=== PATIENT | female | born 1960 | race Caucasian/White ===

== ENCOUNTER 2016-12-11 20:19 | Emergency (ER) | payer MEDICARE ==
[2016-12-11] MEDS ORDERED: Sodium Chloride 0.9% 1000 ML 1,000 ML IV SCH (20:30)
--- NOTE | 2016-12-11 20:35 | ERPHSYRPT ---
- History of Present Illness Time Seen by Provider: 12/11/16 20:23 Source: patient Exam Limitations: no limitations Physician History: FOR THE PAST 5 DAYS PT HAS HAD YELLOW WATERY DIARRHEA; FOR THE PAST 50 MINUTES SHORTNESS OF AIR. PT DENIES VOMITING, FEVER, CHEST PAIN. PT REPORTEDLY HAD IVF THIS AM AND A LOW POTASSIUM. Allergies/Adverse Reactions: iodine Allergy (Verified 12/11/16 20:34) walnut Allergy (Verified 12/11/16 20:34) acetaminophen [From Percocet] Adverse Reaction (Mild, Verified 12/11/16 20:34) UPSET STOMACH oxycodone HCl [From Percocet] Adverse Reaction (Mild, Verified 12/11/16 20:34) UPSET STOMACH Home Medications: Metoprolol Tartrate 25 mg [Lopressor 25MG Tab] 50 mg PO BID 01/04/16 [ History] Ropinirole HCl [Requip] 0.5 mg PO TID PRN 01/04/16 [History] Carbamazepine 200 mg [Tegretol 200 MG] 200 mg PO BID 03/29/16 [History] Levothyroxine Sodium 25 Mcg [Synthroid 25 Mcg] 25 mcg PO DAILY 03/29/16 [ History] Trazodone HCl 300 mg PO DAILY 03/29/16 [History] Benztropine Mesylate 1 tab PO BID 06/15/16 [History] Gabapentin 1 cap PO BID 06/15/16 [History] Morphine Sulfate/Naltrexone [Embeda 60-2.4 mg Capsule] 1 cap PO DAILY 06/15/16 [ History] Simvastatin 1 oz PO DAILY 06/15/16 [History] Suvorexant [Belsomra] 1 tab PO HS 06/15/16 [History] Suvorexant [Belsomra] 20 mg PO HS 07/06/16 [History] Hx Tetanus, Diphtheria Vaccination/Date Given: Yes (2014) Hx Influenza Vaccination/Date Given: No Hx Pneumococcal Vaccination/Date Given: Yes - Review of Systems Constitutional: No Fever Respiratory: Dyspnea Cardiac: No Chest Pain Abdominal/Gastrointestinal: Diarrhea, No Vomiting Skin: No Rash Endocrine: No Excessive Sweating All Other Systems: Reviewed and Negative - Past Medical History Pertinent Past Medical History: Yes Neurological History: Dementia ENT History: No Pertinent History Cardiac History: Arrhythmia, High Cholesterol, Hypertension, Other Respiratory History: COPD, Sleep Apnea Endocrine Medical History: Hypothyroidism Musculoskeletal History: Degenerative Disk Disease, Fibromyalgia, Rheumatoid Arthritis, Other GI Medical History: Colitis, GERD, Other History: No Pertinent History Psycho-Social History: Anxiety, Depression Female Reproductive Disorders: No Pertinent History Other Medical History: lupus, - Past Surgical History Past Surgical History: No Neuro Surgical History: No Pertinent History Cardiac: No Pertinent History Respiratory: No Pertinent History Gastrointestinal: No Pertinent History Genitourinary: No Pertinent History Musculoskeletal: No Pertinent History Female Surgical History: No Pertinent History - Social History Smoking Status: Current every day smoker How long have you smoked: 43 Exposure to second hand smoke: Yes Drug Use: none Patient Lives Alone: No - Nursing Vital Signs Nursing Vital Signs: Initial Vital Signs Temperature 98.7 F Temperature Source Oral Pulse Rate 87 Respiratory Rate 24 Blood Pressure [] 156/98 Pain Intensity 7 - Physical Exam General Appearance: no apparent distress, alert Eye Exam: PERRL/EOMI Ears, Nose, Throat Exam: TMs normal, pharynx normal, moist mucous membranes Neck Exam: normal inspection Respiratory Exam: lungs clear Cardiovascular Exam: normal heart sounds Gastrointestinal/Abdomen Exam: soft, other (B.S. MILDLY HYPERACTIVE AND NORMOTONIC) Extremity Exam: normal inspection, No pedal edema Neurologic Exam: alert, cooperative Skin Exam: warm, dry - Course Nursing assessment & vital signs reviewed: Yes EKG Interpreted by Me: RATE (80), Sinus Rhythm, NORMAL AXIS, NORMAL INTERVALS, Left Bundle Branch Block, ST Elev (V1 & V2) - Radiology Exams Chest X-ray Interpretation: Interpreted by me (MILD CONGESTIVE CHANGES) Ordered Tests: Active Orders 24 hr Category Date Time Status EKG-ER Only STAT Care 12/11/16 20:29 Active IV Insertion STAT Care 12/11/16 21:08 Active Oxygen-ED Only NASAL CANNULA 2 lpm Care 12/11/16 20:29 Active Pulse Oximetry (ED) STAT Care 12/11/16 20:29 Active CHEST 1 VIEW (PORTABLE) Stat Exams 12/11/16 20:30 Taken AMYLASE Stat Lab 12/11/16 20:59 Completed CBC W DIFF Stat Lab 12/11/16 20:59 Completed CMP Stat Lab 12/11/16 20:59 Completed LIPASE Stat Lab 12/11/16 20:59 Completed MAGNESIUM Stat Lab 12/11/16 20:59 Completed PROTIME WITH INR Stat Lab 12/11/16 20:59 Completed PTT Stat Lab 12/11/16 20:59 Completed TROPONIN Q3H Lab 12/11/16 20:59 Completed TROPONIN Q3H Lab 12/11/16 23:30 Ordered TROPONIN Q3H Lab 12/12/16 02:30 Ordered TROPONIN Q3H Lab 12/12/16 05:30 Ordered TROPONIN Q3H Lab 12/12/16 08:30 Ordered Medication Summary Generic Name Dose Route Start Last Admin Trade Name Delmar PRN Reason Stop Dose Admin Sodium Chloride 1,000 mls @ 100 mls/hr 12/11/16 20:30 12/11/16 21:11 Sodium Chloride 0.9% 1000 Ml IV 01/10/17 20:29 100 mls/hr .Q10H JORGE Administration Magnesium Sulfate/Dextrose 100 mls @ 200 mls/hr 12/11/16 21:46 12/11/16 22:00 Magnesium 1 Gm / 100 Ml D5w IV 12/11/16 22:15 200 mls/hr STAT ONE Administration Potassium Chloride/Sodium Chloride 1,000 mls @ 500 mls/hr 12/11/16 21:45 22:00 Sodium Chloride 0.9% W/ 20 Meq Kcl/Liter IV 01/10/17 21:44 500 mls/hr .Q2H JORGE Administration Discontinued Medications Generic Name Dose Route Start Last Admin Trade Name Delmar PRN Reason Stop Dose Admin Sodium Chloride Confirm 12/11/16 20:41 Sodium Chloride 0.9% 1000 Ml Administered 12/11/16 20:42 Dose 1,000 mls @ ud .ROUTE .STK-MED ONE Magnesium Sulfate/Dextrose Confirm 12/11/16 21:59 Magnesium 1 Gm / 100 Ml D5w Administered 12/11/16 22:00 Dose 100 mls @ ud IV .STK-MED ONE Potassium Chloride/Sodium Chloride Confirm 12/11/16 21:59 Sodium Chloride 0.9% W/ 20 Meq Kcl/Liter Administered 12/11/16 22:00 Dose 1,000 mls @ ud IV .STK-MED ONE Lab/Rad Data: Laboratory Result Diagrams 12/11/16 20:59 12/11/16 20:59 Laboratory Results 12/11/16 12/11/16 12/11/16 Range/Units 20:59 20:59 20:59 WBC (4.0-10.5) K/mm3 RBC (4.1-5.4) M/mm3 Hgb (12.0-16.0) gm/dl Hct (35-47) % MCV (78-100) fl MCH (26-32) pg MCHC (32-36) g/dl RDW (11.5-14.0) % Plt Count (150-450) K/mm3 MPV (6-9.5) fl Gran % (36.0-66.0) % Lymphocytes % (24.0-44.0) % Monocytes % (0.0-12.0) % Eosinophils % (0.00-5.0) % Basophils % (0.0-0.4) % Basophils # (0-0.4) INR 1.31 (0.8-3.0) PTT 41.0 H (25.3-37.0) SECONDS Sodium 148 H (136-145) mEq/L Potassium 2.6 L* (3.5-5.1) mEq/L Chloride 108 H (98-107) mEq/L Carbon Dioxide 23.7 (21-32) mEq/L Anion Gap 17.6 H (5-15) MEQ/L BUN 17 (9-20) mg/dL Creatinine 0.97 (0.55-1.30) mg/dl Estimated GFR > 60 ML/MIN Glucose 129 H (70-110) MG/DL Calcium 8.8 (8.5-10.1) mg/dL Magnesium 1.6 L (1.8-2.4) mg/dL Total Bilirubin 0.3 (0.2-1.0) mg/dL AST 31 (15-37) U/L ALT 20 (12-78) U/L Alkaline Phosphatase 98 (46-116) U/L Troponin I 0.062 H* (0.000-0.056) ng/ml Serum Total Protein 7.2 (6.4-8.2) gm/dL Albumin 3.1 L (3.4-5.0) g/dL Amylase 22 L (25-115) U/L Lipase 109 (73-393) U/L 12/11/16 Range/Units 20:59 WBC 11.8 H (4.0-10.5) K/mm3 RBC 4.91 (4.1-5.4) M/mm3 Hgb 14.9 (12.0-16.0) gm/dl Hct 43.9 (35-47) % MCV 89.4 (78-100) fl MCH 30.3 (26-32) pg MCHC 33.9 (32-36) g/dl RDW 16.3 H (11.5-14.0) % Plt Count 265 (150-450) K/mm3 MPV 10.6 H (6-9.5) fl Gran % 68.1 H (36.0-66.0) % Lymphocytes % 21.7 L (24.0-44.0) % Monocytes % 9.2 (0.0-12.0) % Eosinophils % 0.7 (0.00-5.0) % Basophils % 0.3 (0.0-0.4) % Basophils # 0.04 (0-0.4) INR (0.8-3.0) PTT (25.3-37.0) SECONDS Sodium (136-145) mEq/L Potassium (3.5-5.1) mEq/L Chloride (98-107) mEq/L Carbon Dioxide (21-32) mEq/L Anion Gap (5-15) MEQ/L BUN (9-20) mg/dL Creatinine (0.55-1.30) mg/dl Estimated GFR ML/MIN Glucose (70-110) MG/DL Calcium (8.5-10.1) mg/dL Magnesium (1.8-2.4) mg/dL Total Bilirubin (0.2-1.0) mg/dL AST (15-37) U/L ALT (12-78) U/L Alkaline Phosphatase (46-116) U/L Troponin I (0.000-0.056) ng/ml Serum Total Protein (6.4-8.2) gm/dL Albumin (3.4-5.0) g/dL Amylase (25-115) U/L Lipase (73-393) U/L - Progress Discussed with Dr.: Other (SPOKE WITH DR PRINCE(ER DR)([id number]) WHO ACCEPTED PT FOR TRANSFER TO [facility] ER.) - Departure Time of Disposition: 22:11 Departure Disposition: Transfer ([facility]) Clinical Impression: ACUTE ID, HYPOKALEMIA, HYPOMAGNESEMIA, DIARRHEA, DYSPNEA Condition: Fair Critical Care Time: Yes Critical Care Time(excluding separately billable procedures): 30-74 minutes Referrals: KORY MCLEAN MD [Primary Care Provider] -
[2016-12-11] MEDS ORDERED: Sodium Chloride 0.9% 1000 ML 1,000 ML ONE (20:41)
[2016-12-11 21:02] LABS: BASOPHIL % 0.3 % (0.0-0.4); Eosinophil % 0.7 % (0.00-5.0); Granulocytes % 68.1 % (36.0-66.0); Lymphocytes % 21.7 % (24.0-44.0); Mean Cell Volume 89.4 fl (78-100); Mean Corpuscular Hemoglobin 30.3 pg (26-32); Mean Platelet Volume 10.6 fl (6-9.5); Monocytes % 9.2 % (0.0-12.0); Platelet Count 265 K/mm3 (150-450); Red Blood Count 4.91 M/mm3 (4.1-5.4); Red Cell Distribution Width 16.3 % (11.5-14.0); White Blood Count 11.8 K/mm3 (4.0-10.5)
[2016-12-11 21:13] VITALS: BP 156/98; PULSE 87; O2SAT 97
[2016-12-11 21:28] LABS: ALBUMIN 3.1 g/dL (3.4-5.0); ALKALINE PHOSPHATASE 98 U/L (46-116); ANION GAP 17.6 MEQ/L (5-15); BILIRUBIN,TOTAL 0.3 mg/dL (0.2-1.0); BLOOD UREA NITROGEN 17 mg/dL (9-20); CHLORIDE 108 mEq/L (98-107); Carbon Dioxide 23.7 mEq/L (21-32); Glucose 129 MG/DL (70-110); LIPASE 109 U/L (73-393); MAGNESIUM 1.6 mg/dL (1.8-2.4); SGOT/AST 31 U/L (15-37); SGPT/ALT 20 U/L (12-78); SODIUM 148 mEq/L (136-145); Total Protein 7.2 gm/dL (6.4-8.2)
[2016-12-11 21:29] LABS: INR 1.31 (0.8-3.0); PROTIME 14.6 SECONDS (9.95-12.35)
[2016-12-11 21:38] LABS: Potassium 2.6 mEq/L (3.5-5.1)
[2016-12-11] MEDS ORDERED: Sodium Chloride 0.9% W/ 20 mEq KCl/LITER 1,000 ML IV SCH (21:45)
[2016-12-11] MEDS ORDERED: Magnesium 1 Gm / 100 Ml D5W*** 100 ML IV ONE ×2 (21:46→21:59)
[2016-12-11] MEDS ORDERED: Effient 10 MG TABLET PO ONE (21:59)
[2016-12-11] MEDS ORDERED: Sodium Chloride 0.9% W/ 20 mEq KCl/LITER 1,000 ML IV ONE (21:59)
[2016-12-11] MEDS ORDERED: BABY ASPIRIN 81 MG CHEW PO ONE (22:13)
[2016-12-11] MEDS ORDERED: BABY ASPIRIN 81 MG CHEW ONE (22:14)
--- NOTE | 2016-12-12 08:54 | XRAY ---
Indication: Short of breath. Nausea, vomiting, diarrhea. Comparison: February 05, 2016. Portable chest demonstrates mild interstitial pulmonary edema and tiny bibasilar effusions without cardiomegaly. Bony thorax intact.
== END 2016-12-11 22:18 | disposition short-term general hospital (02) ==
LOC: ED 20:19
DX: I21.3 ST elevation (STEMI) myocardial infarction of unspecified site (principal); E87.6 Hypokalemia; E83.42 Hypomagnesemia; R19.7 Diarrhea, unspecified; R06.00 Dyspnea, unspecified
CPT/HCPCS: 36000; 36415; 71010; 80053; 82150; 83690; 83735; 84484; 85025; 85610; 85730; 93005; 96360; 96365; 96367; 99285; 99291; J3475

== ENCOUNTER 2017-04-16 10:23 | Observation (INO) | payer MEDICARE ==
[2017-04-16] MEDS ORDERED: LOPRESSOR 5 MG/5 ML INJECTION IV ONE ×2 (10:47→11:48)
[2017-04-16] MEDS ORDERED: BABY ASPIRIN 81 MG CHEW PO ONE (10:47)
[2017-04-16] MEDS ORDERED: Nitrostat 0.4 MG (ED) SL ONE ×2 (10:47→11:47)
--- NOTE | 2017-04-16 11:02 | ERPHSYRPT ---
- History of Present Illness Time Seen by Provider: 04/16/17 10:35 Historian: patient Exam Limitations: clinical condition Patient Subjective Stated Complaint: pt states the last 2 days she has been vomiting, vomited x1 today and loose stools x2, treated for c diff just finished antibotics. chest pain last night . pain to left breast nonradiating. cough nonproductive, son at times Triage Nursing Assessment: pt alert, will not answer questions states her knows all about her,alert, resp easy, chest clear, skin w/d, no edema noted, chest tender to touch. no injury Physician History: PATIENT WITH HISTORY OF CORONARY ARTERY DISEASE COMPLAINS OF SUBSTERNAL CHEST PAIN TIGHTNESS SINCE 8PM LAST NIGHT, CONSTANT, PAIN SCALE 10/10, HAD MODERATE RELIEF WITH NITROGLYCERIN X 2 DOSES. CHEST PAIN HAS BEEN CONSTANT AT PAIN SCALE 4/10 ASSOCIATED WITH DYSPNEA. JAYMIE ALSO HAD 2 BOUTS OF CLOSTRIDIUM DIFICILLE , JUST FINISHED COURSE OF ANTIBIOTICS. Timing/Duration: yesterday, constant Quality: pressure, tightness Location: substernal Chest Pain Radiation: no radiation Severity of Pain-Max: severe Severity of Pain-Current: moderate Modifying Factors: Improves With: nothing Associated Symptoms: shortness of breath Nitro Today/Relief: no nitro taken today Aspirin Treatment Today: no aspirin today, 81 mg x 1 Allergies/Adverse Reactions: iodine Allergy (Verified 04/16/17 10:35) shellfish derived Allergy (Verified 04/16/17 10:35) walnut Allergy (Verified 04/16/17 10:35) oxycodone HCl [From Percocet] Adverse Reaction (Mild, Verified 04/16/17 10:35) UPSET STOMACH Home Medications: Metoprolol Tartrate 25 mg [Lopressor 25MG Tab] 50 mg PO BID 01/04/16 [ History] Ropinirole HCl [Requip] 0.5 mg PO TID PRN 01/04/16 [History] Carbamazepine 200 mg [Tegretol 200 MG] 200 mg PO BID 03/29/16 [History] Levothyroxine Sodium 25 Mcg [Synthroid 25 Mcg] 25 mcg PO DAILY 03/29/16 [ History] Trazodone HCl 300 mg PO DAILY 03/29/16 [History] Benztropine Mesylate 1 tab PO BID 06/15/16 [History] Gabapentin 1 cap PO BID 06/15/16 [History] Morphine Sulfate/Naltrexone [Embeda 60-2.4 mg Capsule] 1 cap PO BID 06/15/16 [ History] Simvastatin 1 oz PO DAILY 06/15/16 [History] Suvorexant [Belsomra] 20 mg PO HS 07/06/16 [History] Benztropine Mesylate [Cogentin] 0.5 mg BID 04/16/17 [History] Carvedilol 12.5 mg [Coreg 12.5 mg] 6.25 mg BID 04/16/17 [History] Duloxetine HCl [Cymbalta] 20 mg BID 04/16/17 [History] Furosemide 40 mg [Lasix 40 MG] 40 mg DAILY 04/16/17 [History] Hydroxyzine HCl 25 mg [Atarax 25 mg] 25 mg DAILY 04/16/17 [History] Lisinopril 5 mg BID 04/16/17 [History] Lurasidone HCl [Latuda] 120 mg BID 04/16/17 [History] Metoprolol Tartrate 25 mg [Lopressor 25MG Tab] 25 mg BID 04/16/17 [History ] Paroxetine HCl [Paxil] 20 mg DAILY 04/16/17 [History] Potassium Chloride [Klor-Con 10] 10 meq BID 04/16/17 [History] Spironolactone 25 mg [Aldactone 25 MG] 25 mg DAILY 04/16/17 [History] Hx Tetanus, Diphtheria Vaccination/Date Given: No Hx Influenza Vaccination/Date Given: Yes Hx Pneumococcal Vaccination/Date Given: Yes Immunizations Up to Date: Yes - Past Medical History Pertinent Past Medical History: Yes Neurological History: Dementia ENT History: No Pertinent History Cardiac History: Arrhythmia, High Cholesterol, Hypertension, Other Respiratory History: COPD, Sleep Apnea Endocrine Medical History: Hypothyroidism Musculoskeletal History: Degenerative Disk Disease, Fibromyalgia, Rheumatoid Arthritis, Other GI Medical History: Colitis, GERD, Other History: No Pertinent History Psycho-Social History: Anxiety, Depression Female Reproductive Disorders: No Pertinent History Other Medical History: lupus, - Past Surgical History Past Surgical History: No Neuro Surgical History: No Pertinent History Cardiac: No Pertinent History Respiratory: No Pertinent History Gastrointestinal: No Pertinent History Genitourinary: No Pertinent History Musculoskeletal: No Pertinent History Female Surgical History: No Pertinent History - Social History Smoking Status: Current every day smoker How long have you smoked: 43 Exposure to second hand smoke: Yes Drug Use: none Patient Lives Alone: No - Female History Hx Last Menstrual Period: post - Nursing Vital Signs Nursing Vital Signs: Initial Vital Signs Temperature 98.2 F Temperature Source Oral Pulse Rate 84 Respiratory Rate 16 Blood Pressure [] 147/84 Pain Intensity 4 - Physical Exam General Appearance: no apparent distress, alert Eye Exam: PERRL/EOMI, eyes nml inspection Ears, Nose, Throat Exam: normal ENT inspection, moist mucous membranes Neck Exam: normal inspection, non-tender, supple, full range of motion Respiratory Exam: normal breath sounds, lungs clear, No respiratory distress Cardiovascular Exam: regular rate/rhythm, normal heart sounds Gastrointestinal/Abdomen Exam: soft, normal bowel sounds (NONTENDER), No tenderness, No mass Back Exam: normal inspection, No CVA tenderness, No vertebral tenderness Extremity Exam: normal inspection, normal range of motion Neurologic Exam: alert, oriented x 3, cooperative, normal mood/affect, sensation nml, No motor deficits Skin Exam: normal color, warm, dry SpO2 Interpretation: normal SpO2: 95 Oxygen Delivery: Room Air - Course EKG Interpreted by Me: RATE, Sinus Rhythm, NORMAL AXIS, Left Bundle Branch Block - Radiology Exams Chest X-ray Interpretation: Discussed w/ radiologist, Negative Ordered Tests: Active Orders 24 hr Category Date Time Status Admission/Status Order ROUTINE Care 04/16/17 13:00 Ordered Call Admit Doctor for Orders ROUTINE Care 04/16/17 13:00 Ordered Jaw Skinner STAT Care 04/16/17 10:42 Active Code Status Order ROUTINE Care 04/16/17 13:00 Ordered EKG-ER Only STAT Care 04/16/17 10:41 Active Fall Protocol ROUTINE Care 04/16/17 13:01 Ordered IV Care Q6H Care 04/16/17 13:00 Ordered IV Insertion STAT Care 04/16/17 10:42 Active Implement Chest Pain Pathway ROUTINE Care 04/16/17 13:00 Ordered Oxygen-ED Only NASAL CANNULA 2 lpm Care 04/16/17 10:47 Active Samina Lemon ROUTINE Care 04/16/17 13:00 Ordered Telemetry ROUTINE Care 04/16/17 13:00 Ordered Vital Signs Q4H Care 04/16/17 13:00 Ordered Weight,Daily 0600 Care 04/16/17 13:00 Ordered Cardiac Diet Diet 04/16/17 Dinner Ordered CHEST 1 VIEW (PORTABLE) Stat Exams 04/16/17 10:49 Completed CBC W DIFF Stat Lab 04/16/17 10:55 Completed CMP Stat Lab 04/16/17 10:55 Completed LIPID PROFILE AM.LAB Lab 04/17/17 04:00 Ordered MAGNESIUM Stat Lab 04/16/17 10:55 Completed NT PRO BNP Stat Lab 04/16/17 10:55 Completed PROTIME WITH INR Stat Lab 04/16/17 10:55 Completed TROPONIN Q3H Lab 04/16/17 10:55 Completed TROPONIN Q3H Lab 04/16/17 14:00 Ordered TROPONIN Q3H Lab 04/16/17 17:00 Ordered TROPONIN Q3H Lab 04/16/17 20:00 Ordered TROPONIN Q3H Lab 04/16/17 23:00 Ordered EKG Q8HX2,QAMX3,PRN RT 04/16/17 13:00 Ordered Pulse Oximetry Q4H RT 04/16/17 13:00 Ordered Transfer Order Routine Transfer 04/16/17 13:00 Ordered Medication Summary Generic Name Dose Route Start Last Admin Trade Name Freq PRN Reason Stop Dose Admin Sodium Chloride 1,000 mls @ 50 mls/hr 04/16/17 11:00 04/16/17 11:49 Sodium Chloride 0.9% 1000 Ml IV 05/16/17 10:59 50 mls/hr .Q20H JORGE Administration Potassium Chloride 100 mls @ 50 mls/hr 04/16/17 12:16 04/16/17 12:46 Potassium Chloride 20 Meq In Water 100ml IV 04/16/17 14:15 50 mls/hr STAT ONE Administration Discontinued Medications Generic Name Dose Route Start Last Admin Trade Name Freq PRN Reason Stop Dose Admin Aspirin 324 mg 04/16/17 10:47 04/16/17 11:50 Baby Aspirin 81 Mg Chew PO 04/16/17 10:48 324 mg STAT ONE Administration Aspirin Confirm 04/16/17 11:47 Baby Aspirin 81 Mg Chew Administered 04/16/17 11:48 Dose 324 mg .ROUTE .STK-MED ONE Potassium Chloride Confirm 04/16/17 12:43 Potassium Chloride 20 Meq In Water 100ml Administered 04/16/17 12:44 Dose 100 mls @ ud IV .STK-MED ONE Metoprolol Tartrate 5 mg 04/16/17 10:47 04/16/17 11:50 Lopressor 5 Mg/5 Ml Injection IV 04/16/17 10:48 5 mg STAT ONE Administration Metoprolol Tartrate Confirm 04/16/17 11:48 Lopressor 5 Mg/5 Ml Injection Administered 04/16/17 11:49 Dose 5 mg IV .STK-MED ONE Morphine Sulfate 4 mg 04/16/17 12:46 04/16/17 12:52 Morphine Sulfate 4 Mg Inj IV 04/16/17 12:47 4 mg STAT ONE Administration Morphine Sulfate Confirm 04/16/17 12:52 Morphine Sulfate 4 Mg Inj Administered 04/16/17 12:53 Dose 4 mg .ROUTE .STK-MED ONE Nitroglycerin 0.4 mg 04/16/17 10:47 04/16/17 11:50 Nitrostat 0.4 Mg (Ed) SL 04/16/17 10:48 0.4 mg STAT ONE Administration Nitroglycerin Confirm 04/16/17 11:47 Nitrostat 0.4 Mg (Ed) Administered 04/16/17 11:48 Dose 0.4 mg SL .STK-MED ONE Nitroglycerin 1 gm 04/16/17 12:43 04/16/17 12:52 Nitro-Bid 2% Ud Packets TOP 04/16/17 12:44 1 gm STAT ONE Administration Nitroglycerin Confirm 04/16/17 12:52 Nitro-Bid 2% Ud Packets Administered 04/16/17 12:53 Dose 1 gm .ROUTE .STK-MED ONE Ondansetron HCl 4 mg 04/16/17 12:45 04/16/17 12:53 Zofran 4 Mg/2 Ml Vial IV 04/16/17 12:46 4 mg STAT ONE Administration Ondansetron HCl Confirm 04/16/17 12:53 Zofran 4 Mg/2 Ml Vial Administered 04/16/17 12:54 Dose 4 mg .ROUTE .STK-MED ONE Potassium Chloride 40 meq 04/16/17 12:17 04/16/17 12:46 Klor Con 10 Meq PO 04/16/17 12:18 40 meq STAT ONE Administration Potassium Chloride Confirm 04/16/17 12:43 Klor Con 10 Meq Administered 04/16/17 12:44 Dose 40 meq PO .STK-MED ONE Lab/Rad Data: Laboratory Result Diagrams 04/16/17 10:55 04/16/17 10:55 Laboratory Results 04/16/17 04/16/17 04/16/17 Range/Units 10:55 10:55 10:55 WBC (4.0-10.5) K/mm3 RBC (4.1-5.4) M/mm3 Hgb (12.0-16.0) gm/dl Hct (35-47) % MCV (78-100) fl MCH (26-32) pg MCHC (32-36) g/dl RDW (11.5-14.0) % Plt Count (150-450) K/mm3 MPV (6-9.5) fl Gran % (36.0-66.0) % Lymphocytes % (24.0-44.0) % Monocytes % (0.0-12.0) % Eosinophils % (0.00-5.0) % Basophils % (0.0-0.4) % Basophils # (0-0.4) INR 0.96 (0.8-3.0) Sodium 144 (136-145) mEq/L Potassium 2.6 L* (3.5-5.1) mEq/L Chloride 108 H (98-107) mEq/L Carbon Dioxide 23.9 (21-32) mEq/L Anion Gap 13.7 (5-15) MEQ/L BUN 5 L (9-20) mg/dL Creatinine 0.83 (0.55-1.30) mg/dl Estimated GFR > 60 ML/MIN Glucose 125 H (70-110) MG/DL Calcium 8.6 (8.5-10.1) mg/dL Magnesium 1.5 L (1.8-2.4) mg/dL Total Bilirubin 0.30 (0.2-1.0) mg/dL AST 17 (15-37) U/L ALT 14 (12-78) U/L Alkaline Phosphatase 101 (46-116) U/L Troponin I < 0.017 (0.000-0.056) ng/ml NT-Pro-B Natriuret Pep 2183 H (0-125) pg/ml Serum Total Protein 6.3 L (6.4-8.2) gm/dL Albumin 2.8 L (3.4-5.0) g/dL 04/16/17 Range/Units 10:55 WBC 7.8 (4.0-10.5) K/mm3 RBC 4.45 (4.1-5.4) M/mm3 Hgb 12.6 (12.0-16.0) gm/dl Hct 38.3 (35-47) % MCV 86.1 (78-100) fl MCH 28.3 (26-32) pg MCHC 32.9 (32-36) g/dl RDW 14.0 (11.5-14.0) % Plt Count 225 (150-450) K/mm3 MPV 9.9 H (6-9.5) fl Gran % 74.5 H (36.0-66.0) % Lymphocytes % 16.9 L (24.0-44.0) % Monocytes % 5.2 (0.0-12.0) % Eosinophils % 3.1 (0.00-5.0) % Basophils % 0.3 (0.0-0.4) % Basophils # 0.02 (0-0.4) INR (0.8-3.0) Sodium (136-145) mEq/L Potassium (3.5-5.1) mEq/L Chloride (98-107) mEq/L Carbon Dioxide (21-32) mEq/L Anion Gap (5-15) MEQ/L BUN (9-20) mg/dL Creatinine (0.55-1.30) mg/dl Estimated GFR ML/MIN Glucose (70-110) MG/DL Calcium (8.5-10.1) mg/dL Magnesium (1.8-2.4) mg/dL Total Bilirubin (0.2-1.0) mg/dL AST (15-37) U/L ALT (12-78) U/L Alkaline Phosphatase (46-116) U/L Troponin I (0.000-0.056) ng/ml NT-Pro-B Natriuret Pep (0-125) pg/ml Serum Total Protein (6.4-8.2) gm/dL Albumin (3.4-5.0) g/dL - Progress Progress: improved Progress Note: 04/16/17 12:58 PATIENT GIVEN 4 BABY ASA, NTG 0.4MG SL, NITRO PASTE 1" ANTERIOR CHEST WALL, ZOFRAN 4MG, LOPRESSOR 5MG, MORPHINE 4 MG IV WITH IMPROVED PAIN Discussed with : Bryan (DISCUSSED WITH DR MCLEAN AT 1245 FOR OBSERVATION) - Departure Time of Disposition: 13:10 Departure Disposition: Observation Clinical Impression: ACUTE CHEST PAIN, HYPOKALEMIA Condition: Stable Critical Care Time: No Referrals: KORY MCLEAN MD [Primary Care Provider] -
[2017-04-16 11:04] LABS: BASOPHIL % 0.3 % (0.0-0.4); Eosinophil % 3.1 % (0.00-5.0); Granulocytes % 74.5 % (36.0-66.0); Lymphocytes % 16.9 % (24.0-44.0); Mean Cell Volume 86.1 fl (78-100); Mean Corpuscular Hemoglobin 28.3 pg (26-32); Mean Platelet Volume 9.9 fl (6-9.5); Monocytes % 5.2 % (0.0-12.0); Platelet Count 225 K/mm3 (150-450); Red Blood Count 4.45 M/mm3 (4.1-5.4); White Blood Count 7.8 K/mm3 (4.0-10.5)
--- NOTE | 2017-04-16 11:14 | XRAY ---
Indication: Chest pain and dyspnea. Comparison: December 11, 2016. Portable chest today demonstrates normal heart, lungs, and bony thorax.
[2017-04-16 11:15] LABS: INR 0.96 (0.8-3.0); PROTIME 10.9 SECONDS (9.95-12.35)
[2017-04-16 11:39] LABS: ALBUMIN 2.8 g/dL (3.4-5.0); ALKALINE PHOSPHATASE 101 U/L (46-116); ANION GAP 13.7 MEQ/L (5-15); BLOOD UREA NITROGEN 5 mg/dL (9-20); CHLORIDE 108 mEq/L (98-107); Carbon Dioxide 23.9 mEq/L (21-32); Glucose 125 MG/DL (70-110); MAGNESIUM 1.5 mg/dL (1.8-2.4); SGOT/AST 17 U/L (15-37); SODIUM 144 mEq/L (136-145); Total Protein 6.3 gm/dL (6.4-8.2)
[2017-04-16 11:41] LABS: Potassium 2.6 mEq/L (3.5-5.1)
[2017-04-16] MEDS ORDERED: BABY ASPIRIN 81 MG CHEW ONE (11:47)
[2017-04-16] MEDS: Sodium Chloride 0.9% 1000 ML 1,000 ML IV SCH (11:49)
[2017-04-16 11:56] LABS: SGPT/ALT 14 U/L (12-78)
[2017-04-16] MEDS ORDERED: POTASSIUM CHLORIDE 20 mEq IN WATER 100ML 100 ML IV ONE ×2 (12:16→12:43)
[2017-04-16] MEDS ORDERED: Klor Con 10 MEQ PO ONE ×2 (12:17→12:43)
[2017-04-16] MEDS ORDERED: NITRO-BID 2% UD PACKETS TOP ONE (12:43)
[2017-04-16] MEDS ORDERED: Zofran 4 MG/2 ML VIAL IV ONE (12:45)
[2017-04-16] MEDS ORDERED: MORPHINE SULFATE 4 MG INJ IV ONE (12:46)
[2017-04-16] MEDS ORDERED: MORPHINE SULFATE 4 MG INJ ONE (12:52)
[2017-04-16] MEDS ORDERED: NITRO-BID 2% UD PACKETS ONE (12:52)
[2017-04-16] MEDS ORDERED: Zofran 4 MG/2 ML VIAL ONE (12:53)
[2017-04-16] MEDS ORDERED: Nitrostat 0.4 MG Tablet SL PRN (13:00)
[2017-04-16] MEDS ORDERED: Senokot-S Tablet PO PRN (13:00)
[2017-04-16] MEDS ORDERED: TYLENOL 325 MG PO PRN (13:00)
[2017-04-16] MEDS ORDERED: Sodium Chloride 0.9% 500 ML 500 ML IV SCH (13:00)
[2017-04-16] MEDS ORDERED: MILK OF MAGNESIA 30 ML PO PRN (13:00)
[2017-04-16] MEDS ORDERED: Zofran 4 MG/2 ML VIAL IV PRN (13:00)
[2017-04-16] MEDS ORDERED: MAALOX ES 30 ML UNIT DOSE PO PRN (13:00)
[2017-04-16] MEDS ORDERED: POTASSIUM CHLORIDE 20 mEq IN WATER 100ML 100 ML IV SCH (15:00)
[2017-04-16] MEDS: NITRO-BID 2% UD PACKETS TOP SCH ×2 (15:02→21:17)
--- NOTE | 2017-04-16 16:14 | PCM.HP ---
History of Present Illness - Chief Complaint Chief Complaint: Chest Pain History of Present Illness: is a 57 year old female who reports to the ER today complaining of a 2 day history of substernal chest pain, squeezing in nature with associated nausea and dyspnea. She claims she has had TN x 2 in the past and follows with Dr Garcia. She has also complained of diarrhea, has had recurrent c diff and seeing GI at and considering fecal transplant due to recurrence x 2 after treatment with vanc and flagyl. - Review of Systems Constitutional: No Fever, No Chills Respiratory: Short Of Breath, No Cough Cardiac: Chest Pain Abdominal/Gastrointestinal: Nausea, Diarrhea, No Abdominal Pain, No Vomiting Genitourinary Symptoms: No Dysuria Skin: No Rash All Other Systems: Reviewed and Negative Medications & Allergies Home Medications: Home Medication List Carbamazepine 200 mg [Tegretol 200 MG] 200 mg PO BID 03/29/16 [History Confirmed 04/16/17] Levothyroxine Sodium 25 Mcg [Synthroid 25 Mcg] 25 mcg PO DAILY 03/29/16 [ History Confirmed 04/16/17] Trazodone HCl 300 mg PO HS 03/29/16 [History Confirmed 04/16/17] Simvastatin 20 mg PO DAILY 06/15/16 [History Confirmed 04/16/17] Suvorexant [Belsomra] 20 mg PO HS 07/06/16 [History Confirmed 04/16/17] Benztropine Mesylate [Cogentin] 0.5 mg PO BID 04/16/17 [History Confirmed ] Carvedilol 12.5 mg [Coreg 12.5 mg] 6.25 mg PO BIDAC 04/16/17 [History Confirmed 04/16/17] Cholestyramine Light 4 gm [QUESTRAN Light 4 GM Packet] 4 gm PO BID [History Confirmed 04/16/17] Diphenoxylate HCl/Atropine [Lomotil] 2 tab PO QID 04/16/17 [History Confirmed 04/16/17] Duloxetine HCl [Cymbalta] 20 mg PO HS 04/16/17 [History Confirmed 04/16/17] Furosemide 40 mg [Lasix 40 MG] 40 mg PO DAILY 04/16/17 [History Confirmed 04/16/17] Hydroxyzine HCl 25 mg [Atarax 25 mg] 50 mg PO TID PRN PRN 04/16/17 [ History Confirmed 04/16/17] Lurasidone HCl [Latuda] 120 mg PO EVENING MEAL 04/16/17 [History Confirmed 04/16] Metoprolol Tartrate 25 mg [Lopressor 25MG Tab] 25 mg PO BID 04/16/17 [ History Confirmed 04/16/17] Paroxetine HCl [Paxil] 20 mg PO DAILY 04/16/17 [History Confirmed 04/16/17] Potassium Chloride [Klor-Con 10] 20 meq PO BID 04/16/17 [History Confirmed 04/16] Allergies/Adverse Reactions: Allergies Allergy/AdvReac Type Severity Reaction Status Date / Time iodine Allergy Verified 04/16/17 10:35 shellfish derived Allergy Verified 04/16/17 10:35 walnut Allergy Verified 04/16/17 10:35 oxycodone HCl [From Percocet] AdvReac Mild UPSET Verified 04/16/17 10:35 STOMACH - Past Medical History Past Medical History: Yes Neurological History: Dementia ENT History: No Pertinent History Cardiac History: Arrhythmia, High Cholesterol, Hypertension, Other Respiratory History: COPD, Sleep Apnea Endocrine Medical History: Hypothyroidism Musculoskelatal History: Degenerative Disk Disease, Fibromyalgia, Rheumatoid Arthritis, Other GI Medical History: Colitis, GERD, Other History: No Pertinent History Pyscho-Social History: Anxiety, Attention Deficit Disorder, Bipolar, Depression , Panic Disorder Reproductive Disorders: No Pertinent History Comment: lupus, - Female History Hx Last Menstrual Period: post Are you now?: No - Past Surgical History Past Surgical History: No Neuro Surgical History: No Pertinent History Cardiac History: No Pertinent History Respiratory Surgery: No Pertinent History GI Surgical History: No Pertinent History Genitourinary Surgical Hx: No Pertinent History Musculskeletal Surgical Hx: No Pertinent History Female Surgical History: No Pertinent History - Social History Smoking Status: Current every day smoker How long have you smoked: 35 years Exposure to second hand smoke: No Alcohol: None Drug Use: none - Physical Exam Vital Signs: Vital Signs - 24 hr Temp Pulse Resp BP Pulse Ox 04/16/17 13:53 98.2 F 91 H 20 136/73 97 04/16/17 13:42 98.7 F 91 H 18 136/73 97 04/16/17 13:30 98.7 F 91 H 136/73 04/16/17 13:09 95 04/16/17 13:05 84 16 147/84 96 04/16/17 12:15 80 16 145/102 98 04/16/17 10:26 98.2 F 96 H 16 178/88 95 Oxygen-Last 24 hours O2 Percentage 2 Liters = 28% General Appearance: no apparent distress, alert Neurologic Exam: alert, oriented x 3, cooperative, normal mood/affect, nml cerebellar function, nml station & gait, sensation nml, No motor deficits Respiratory Exam: normal breath sounds, lungs clear, No respiratory distress Cardiovascular Exam: regular rate/rhythm, normal heart sounds, normal peripheral pulses Gastrointestinal/Abdomen Exam: soft, normal bowel sounds, No tenderness, No mass Extremity Exam: normal inspection, normal range of motion, pelvis stable Skin Exam: normal color, warm, dry, No rash Results - Labs Lab/Micro Results: Lab Results-Last 24 Hours 04/16/17 Range/Units 14:00 Troponin I 0.028 (0.000-0.056) ng/ml - Other Procedures and Tests Respiratory Therapy 04/16/17 17:01 EKG ONCE 04/17/17 05:00 EKG ONCE 04/18/17 05:00 EKG ONCE 04/19/17 05:00 EKG ONCE Assessment/Plan (1) Chest pain Current Visit: Yes Status: Acute Assessment & Plan: currently pain-free, troponin negative. no acute changes on EKG had complete LBBB unchanged from prior comparison 12/11/16, has f/u with Dr Garcia scheduled in 2 days. continue coreg and lasix at this time. Code(s): R07.9 - CHEST PAIN, UNSPECIFIED (2) Acute hypokalemia Current Visit: Yes Status: Acute Assessment & Plan: replacing potassium and mag Code(s): E87.6 - HYPOKALEMIA (3) Diarrhea Current Visit: Yes Status: Acute Assessment & Plan: check c diff, stool sample pending Code(s): R19.7 - DIARRHEA, UNSPECIFIED (4) Recurrent Clostridium difficile diarrhea Current Visit: Yes Status: Acute Code(s): A04.7 - ENTEROCOLITIS DUE TO CLOSTRIDIUM DIFFICILE
[2017-04-16] MEDS ORDERED: ATARAX 25 MG PO PRN (17:12)
[2017-04-16] MEDS ORDERED: MEDICATION INTERVENTION MC PRN (17:26)
[2017-04-16] MEDS ORDERED: LURASIDONE HCL 120 MG PO SCH (18:00)
[2017-04-16] MEDS ORDERED: Lomotil ONE ×2 (18:16→18:21)
[2017-04-16] MEDS: Lomotil PO SCH (18:18)
[2017-04-16] MEDS: QUESTRAN Light 4 GM Packet PO SCH (21:17)
[2017-04-16] MEDS: Coreg 6.25 MG PO SCH (21:22)
[2017-04-16] MEDS: Tegretol 200 MG PO SCH (21:25)
[2017-04-16] MEDS: COGENTIN 0.5 MG PO SCH (21:29)
[2017-04-16] MEDS: Klor Con 10 MEQ PO SCH (21:31)
[2017-04-16] MEDS ORDERED: TRAZODONE HCL 300 MG PO SCH (22:00)
[2017-04-16] MEDS ORDERED: BENZTROPINE MESYLATE 0.5 MG PO SCH (22:00)
[2017-04-16] MEDS ORDERED: Desyrel 150 MG PO SCH (22:00)
[2017-04-16] MEDS ORDERED: Cymbalta 30 MG Capsule PO SCH (22:00)
[2017-04-16] MEDS ORDERED: Ambien 10 MG PO SCH (22:00)
[2017-04-16] MEDS ORDERED: SUVOREXANT 20 MG PO SCH (22:00)
[2017-04-16] MEDS ORDERED: Lopressor 25MG Tab PO SCH ×2 (22:00)
[2017-04-16 22:16] LABS: BLOOD UREA NITROGEN 9 mg/dL (9-20); CHLORIDE 109 mEq/L (98-107); Glucose 92 MG/DL (70-110); Potassium 3.3 mEq/L (3.5-5.1); SODIUM 143 mEq/L (136-145)
[2017-04-17 00:41] VITALS: O2SAT 93
[2017-04-17] MEDS: Sodium Chloride 0.9% 1000 ML 1,000 ML IV SCH (02:29)
[2017-04-17] MEDS: NITRO-BID 2% UD PACKETS TOP SCH (06:15)
[2017-04-17 07:20] VITALS: BP 158/75; PULSE 88
[2017-04-17 08:23] LABS: Mean Cell Volume 87.6 fl (78-100); Mean Platelet Volume 10.1 fl (6-9.5); Platelet Count 204 K/mm3 (150-450); Red Blood Count 3.78 M/mm3 (4.1-5.4); Red Cell Distribution Width 14.3 % (11.5-14.0); White Blood Count 6.7 K/mm3 (4.0-10.5)
[2017-04-17 08:27] LABS: Mean Corpuscular Hemoglobin 28.5 pg (26-32)
[2017-04-17 08:38] LABS: MAGNESIUM 1.4 mg/dL (1.8-2.4)
--- NOTE | 2017-04-17 08:57 | PCM.DS ---
Discharge Summary Date of Admission: 04/16/17 13:30 Admitting Physician: KORY MCLEAN Primary Care Provider: KORY MCLEAN Allergies Allergies iodine Allergy (Verified 04/16/17 10:35) shellfish derived Allergy (Verified 04/16/17 10:35) walnut Allergy (Verified 04/16/17 10:35) oxycodone HCl [From Percocet] Adverse Reaction (Mild, Verified 04/16/17 10:35) UPSET STOMACH Hospital Summary - Hospital Course Hospital Course: Pt admitted with chest pain, vomiting, and loose stools. Has had chronic c. diff infections, but negative for the toxin at this admission. She continues to have loose stools despite lomotil. She stopped vomiting and is now tolerating po. She had two troponins early on that were mildly elevated, although still within the normal range; 4th and 5th troponins have been completely negative. She feels much better this morning than on admission. Will check electrolytes and if all normal will discharge to home. She is interested in another medicine for her diarrhea so will try an atropine formulation if covered by her insurance. - Vitals & Intake/Output Vital Signs: Vital Signs Temperature 98.3 F 04/17/17 07:20 Pulse Rate 88 04/17/17 07:20 Respiratory Rate 18 04/17/17 07:20 Blood Pressure 158/75 04/17/17 07:20 O2 Sat by Pulse Oximetry 93 L 04/17/17 07:20 Oxygen-Last Documented O2 Percentage 2 Liters = 28% Intake & Output: Intake & Output 04/14/17 04/15/17 04/16/17 04/17/17 11:59 11:59 11:59 11:59 Intake Total 1670 Balance 1670 Weight 65.317 kg - Lab Result Diagrams: 04/17/17 05:00 04/16/17 21:30 Lab Results-Last 24 Hrs: Lab Results-Last 24 Hours 04/16/17 04/16/17 04/16/17 Range/Units 14:00 16:18 17:37 WBC (4.0-10.5) K/mm3 RBC (4.1-5.4) M/mm3 Hgb (12.0-16.0) gm/dl Hct (35-47) % MCV (78-100) fl MCH (26-32) pg MCHC (32-36) g/dl RDW (11.5-14.0) % Plt Count (150-450) K/mm3 MPV (6-9.5) fl Sodium (136-145) mEq/L Potassium (3.5-5.1) mEq/L Chloride (98-107) mEq/L Carbon Dioxide (21-32) mEq/L Anion Gap (5-15) MEQ/L BUN (9-20) mg/dL Creatinine (0.55-1.30) mg/dl Estimated GFR ML/MIN Glucose (70-110) MG/DL Calcium (8.5-10.1) mg/dL Magnesium (1.8-2.4) mg/dL Troponin I 0.028 0.023 (0.000-0.056) ng/ml NT-Pro-B Natriuret Pep (0-125) pg/ml Triglycerides (30-200) mg/dL Cholesterol (100-200) mg/dL LDL Cholesterol (5-99) mg/dL HDL Cholesterol (35-60) mg/dL Heart Disease Risk Ratio Stl C. diff Tox B Gene NEGATIVE (NEGATIVE) C.difficile 027-NAP1-B1 PRESUMPTIVE NEGATIVE (NEGATIVE) 04/16/17 04/16/17 04/16/17 Range/Units 19:50 19:50 21:30 WBC (4.0-10.5) K/mm3 RBC (4.1-5.4) M/mm3 Hgb (12.0-16.0) gm/dl Hct (35-47) % MCV (78-100) fl MCH (26-32) pg MCHC (32-36) g/dl RDW (11.5-14.0) % Plt Count (150-450) K/mm3 MPV (6-9.5) fl Sodium 143 (136-145) mEq/L Potassium 3.4 L 3.3 L (3.5-5.1) mEq/L Chloride 109 H (98-107) mEq/L Carbon Dioxide 24.0 (21-32) mEq/L Anion Gap 13.0 (5-15) MEQ/L BUN 9 (9-20) mg/dL Creatinine 0.78 (0.55-1.30) mg/dl Estimated GFR > 60 ML/MIN Glucose 92 (70-110) MG/DL Calcium 8.2 L (8.5-10.1) mg/dL Magnesium (1.8-2.4) mg/dL Troponin I < 0.017 (0.000-0.056) ng/ml NT-Pro-B Natriuret Pep (0-125) pg/ml Triglycerides (30-200) mg/dL Cholesterol (100-200) mg/dL LDL Cholesterol (5-99) mg/dL HDL Cholesterol (35-60) mg/dL Heart Disease Risk Ratio Stl C. diff Tox B Gene (NEGATIVE) C.difficile 027-NAP1-B1 (NEGATIVE) 04/16/17 04/17/17 04/17/17 Range/Units 23:17 05:00 05:00 WBC 6.7 (4.0-10.5) K/mm3 RBC 3.78 L (4.1-5.4) M/mm3 Hgb 10.8 L (12.0-16.0) gm/dl Hct 33.1 L (35-47) % MCV 87.6 (78-100) fl MCH 28.5 (26-32) pg MCHC 32.6 (32-36) g/dl RDW 14.3 H (11.5-14.0) % Plt Count 204 (150-450) K/mm3 MPV 10.1 H (6-9.5) fl Sodium (136-145) mEq/L Potassium (3.5-5.1) mEq/L Chloride (98-107) mEq/L Carbon Dioxide (21-32) mEq/L Anion Gap (5-15) MEQ/L BUN (9-20) mg/dL Creatinine (0.55-1.30) mg/dl Estimated GFR ML/MIN Glucose (70-110) MG/DL Calcium (8.5-10.1) mg/dL Magnesium 1.4 L (1.8-2.4) mg/dL Troponin I < 0.017 (0.000-0.056) ng/ml NT-Pro-B Natriuret Pep 2756 H (0-125) pg/ml Triglycerides (30-200) mg/dL Cholesterol (100-200) mg/dL LDL Cholesterol (5-99) mg/dL HDL Cholesterol (35-60) mg/dL Heart Disease Risk Ratio Stl C. diff Tox B Gene (NEGATIVE) C.difficile 027-NAP1-B1 (NEGATIVE) 04/17/17 Range/Units 05:50 WBC (4.0-10.5) K/mm3 RBC (4.1-5.4) M/mm3 Hgb (12.0-16.0) gm/dl Hct (35-47) % MCV (78-100) fl MCH (26-32) pg MCHC (32-36) g/dl RDW (11.5-14.0) % Plt Count (150-450) K/mm3 MPV (6-9.5) fl Sodium (136-145) mEq/L Potassium (3.5-5.1) mEq/L Chloride (98-107) mEq/L Carbon Dioxide (21-32) mEq/L Anion Gap (5-15) MEQ/L BUN (9-20) mg/dL Creatinine (0.55-1.30) mg/dl Estimated GFR ML/MIN Glucose (70-110) MG/DL Calcium (8.5-10.1) mg/dL Magnesium (1.8-2.4) mg/dL Troponin I (0.000-0.056) ng/ml NT-Pro-B Natriuret Pep (0-125) pg/ml Triglycerides 81 (30-200) mg/dL Cholesterol 186 (100-200) mg/dL LDL Cholesterol 108 H (5-99) mg/dL HDL Cholesterol 58 (35-60) mg/dL Heart Disease Risk Ratio 3.2 Stl C. diff Tox B Gene (NEGATIVE) C.difficile 027-NAP1-B1 (NEGATIVE) - Procedures and Test Procedures and Tests throughout Hospitalization: Therapy Orders & Screens 04/16/17 13:00 EKG Q8HX2,QAMX3,PRN Comment: 04/16/17 17:01 EKG ONCE Comment: 04/17/17 05:00 EKG ONCE Comment: 04/18/17 05:00 EKG ONCE Comment: 04/19/17 05:00 EKG ONCE Comment: Discharge Exam General Appearance: no apparent distress Neurologic Exam: alert, oriented x 3, cooperative Skin Exam: normal color, warm, dry Respiratory Exam: normal breath sounds, lungs clear Cardiovascular Exam: regular rate/rhythm, normal heart sounds, No murmur Gastrointestinal/Abdomen Exam: soft, normal bowel sounds, No tenderness, No distention, No mass, No guarding, No rebound Extremity Exam: No pedal edema, No swelling Back Exam: normal inspection Final Diagnosis/Problem List - Final Discharge Diagnosis/Problem (1) Acute hypokalemia Current Visit: Yes Status: Acute Assessment & Plan: She is on 20mEq BID potassium at home. Would increase to 1 po TID at home and advise if diarrhea slows decrease back to 1 po BID. recheck on Sunday (in 3d). (2) Chest pain Current Visit: Yes Status: Acute Assessment & Plan: NM ruled out. No complaint curerntly. (3) Diarrhea Current Visit: Yes Status: Chronic Assessment & Plan: still having loose stools (had 4 this morning). Has been on cholestyramine and lomotil without relief. Will try another med outpatient, if not helping or not covered she is to call the office. F/u with Dr. Mclean in 1 week. - Discharge Disposition: Home, Self-Care Condition: Stable Prescriptions: No Action Carbamazepine 200 mg [Tegretol 200 MG] 200 mg PO BID Trazodone HCl 300 mg PO HS Levothyroxine Sodium 25 Mcg [Synthroid 25 Mcg] 25 mcg PO DAILY Simvastatin 20 mg PO DAILY Suvorexant [Belsomra] 20 mg PO HS Paroxetine HCl [Paxil] 20 mg PO DAILY Lurasidone HCl [Latuda] 120 mg PO EVENING MEAL Duloxetine HCl [Cymbalta] 20 mg PO HS Benztropine Mesylate [Cogentin] 0.5 mg PO BID Potassium Chloride [Klor-Con 10] 20 meq PO BID Hydroxyzine HCl 25 mg [Atarax 25 mg] 50 mg PO TID PRN PRN PRN Reason: Anxiety Furosemide 40 mg [Lasix 40 MG] 40 mg PO DAILY Carvedilol 12.5 mg [Coreg 12.5 mg] 6.25 mg PO BIDAC Metoprolol Tartrate 25 mg [Lopressor 25MG Tab] 25 mg PO BID Diphenoxylate HCl/Atropine [Lomotil] 2 tab PO QID Cholestyramine Light 4 gm [QUESTRAN Light 4 GM Packet] 4 gm PO BID Follow up with: KORY MCLEAN MD [Primary Care Provider] -
[2017-04-17] MEDS: Coreg 6.25 MG PO SCH (09:41)
[2017-04-17] MEDS: Klor Con 10 MEQ PO SCH (09:41)
[2017-04-17] MEDS: Tegretol 200 MG PO SCH (09:42)
[2017-04-17] MEDS: COGENTIN 0.5 MG PO SCH (09:42)
[2017-04-17] MEDS: QUESTRAN Light 4 GM Packet PO SCH (09:43)
--- NOTE | 2017-04-17 09:52 | PCM.DCORD ---
- Discharge Disposition: Home, Self-Care Condition: Stable Prescriptions: New Dicyclomine HCl 20 mg [Bentyl 20 mg] 20 mg PO QID PRN #30 tablet PRN Reason: Diarrhea Magnesium Oxide 400 mg [Mag-Ox 400] 400 mg PO DAILY #30 tablet Continue Carbamazepine 200 mg [Tegretol 200 MG] 200 mg PO BID Trazodone HCl 300 mg PO HS Levothyroxine Sodium 25 Mcg [Synthroid 25 Mcg] 25 mcg PO DAILY Simvastatin 20 mg PO DAILY Suvorexant [Belsomra] 20 mg PO HS Paroxetine HCl [Paxil] 20 mg PO DAILY Lurasidone HCl [Latuda] 120 mg PO EVENING MEAL Duloxetine HCl [Cymbalta] 20 mg PO HS Benztropine Mesylate [Cogentin] 0.5 mg PO BID Hydroxyzine HCl 25 mg [Atarax 25 mg] 50 mg PO TID PRN PRN PRN Reason: Anxiety Furosemide 40 mg [Lasix 40 MG] 40 mg PO DAILY Carvedilol 12.5 mg [Coreg 12.5 mg] 6.25 mg PO BIDAC Metoprolol Tartrate 25 mg [Lopressor 25MG Tab] 25 mg PO BID Diphenoxylate HCl/Atropine [Lomotil] 2 tab PO QID Cholestyramine Light 4 gm [QUESTRAN Light 4 GM Packet] 4 gm PO BID Changed Potassium Chloride [Klor-Con 10] 20 meq PO TID #90 tablet.er Follow up with: KORY MCLEAN MD [Primary Care Provider] -
[2017-04-17] MEDS ORDERED: SYNTHROID 25 MCG PO SCH ×2 (10:00)
[2017-04-17] MEDS ORDERED: Lasix 40 MG PO SCH (10:00)
[2017-04-17] MEDS ORDERED: Aldactone 25 MG PO SCH (10:00)
[2017-04-17] MEDS ORDERED: Ecotrin 325 MG PO SCH (10:00)
[2017-04-17] MEDS ORDERED: Paxil 20 MG PO SCH (10:00)
[2017-04-17] MEDS ORDERED: Zestril 5 MG PO SCH (10:00)
[2017-04-17] MEDS: Lomotil PO SCH (10:19)
[2017-04-17] MEDS ORDERED: ZOCOR 20MG PO SCH (22:00)
[2017-04-18 14:12] LABS: Giardia Antigen EIA Negative (Negative)
== END 2017-04-17 10:30 | disposition home or self-care (01) ==
LOC: ED 10:23 → MED SURG 13:30
PROVIDERS: ADMIT Family Medicine; ATTEND Family Medicine
DX: E87.6 Hypokalemia (principal); R07.9 Chest pain, unspecified; R19.7 Diarrhea, unspecified; F41.9 Anxiety disorder, unspecified; Z79.899 Other long term (current) drug therapy; I25.2 Old myocardial infarction; F03.90 Unspecified dementia, unspecified severity, without behavioral disturbance, psychotic disturbance, mood disturbance, and anxiety; I10 Essential (primary) hypertension; J44.9 Chronic obstructive pulmonary disease, unspecified; G47.30 Sleep apnea, unspecified; M79.7 Fibromyalgia; M06.9 Rheumatoid arthritis, unspecified; K21.9 Gastro-esophageal reflux disease without esophagitis; E03.9 Hypothyroidism, unspecified; F31.9 Bipolar disorder, unspecified; F98.8 Other specified behavioral and emotional disorders with onset usually occurring in childhood and adolescence; Z72.0 Tobacco use
CPT/HCPCS: 36000; 36415; 71010; 80048; 80053; 80061; 83721; 83735; 83880; 84132; 84484; 85025; 85027; 85610; 87045; 87046; 87177; 87209; 87335; 87493; 93005; 93041; 93268; 96360; 96361; 96365; 96374; 96375; 99285; G0378; J2270; J2405; J3480; A9270-GY

== ENCOUNTER 2019-04-07 08:37 | Emergency (ER) | payer MEDICARE ==
[2019-04-07 08:52] VITALS: O2SAT 98
--- NOTE | 2019-04-07 09:05 | ERPHSYRPT ---
- History of Present Illness Time Seen by Provider: 04/07/19 08:54 Source: patient Exam Limitations: no limitations Patient Subjective Stated Complaint: tripped nad fell and landed on all fours hurt her arm pretty bad Triage Nursing Assessment: pt alert nad orientedx3, able to ambulate vby self, gait is steady, pupils perrla3, no loss of consciousness, some small abrasions on knees, skin warm dry and intact, right elbow and upper arm unable to rotate or pronate, pulses present and equal bilateral radius, Physician History: 59-year-old white female with history of arrhythmia, hyperlipidemia, COPD, sleep apnea, degenerative disc disease , Arrives with complaint of pain in her arrives arm and elbow symptoms since yesterday. She states she tripped over a curb stopper in a parking lot yesterday. She complains of pain in her right arm and elbow pain is worse with movement of her right elbow she has no shoulder pain or neck pain she denies any other injury. Past medical history includes arrhythmia, hyperlipidemia, high blood pressure, COPD, sleep apnea, hypothyroidism, degenerative disc disease, fibromyalgia, rheumatoid arthritis, colitis, anxiety, GERD, depression, lupus. Past surgical history negative. Occurred: yesterday Method of Injury: fell (tripped over curb stopper) Quality: constant Severity of Pain-Max: moderate Severity of Pain-Current: moderate Extremities Pain Location: arm: right, elbow: right Modifying Factors: Improves With: movement Associated Symptoms: none Allergies/Adverse Reactions: iodine Allergy (Verified 04/16/17 10:35) shellfish derived Allergy (Verified 04/16/17 10:35) walnut Allergy (Verified 04/16/17 10:35) oxycodone HCl [From Percocet] Adverse Reaction (Mild, Verified 04/16/17 10:35) UPSET STOMACH Home Medications: Carbamazepine 200 mg [Tegretol 200 MG] 200 mg PO BID 03/29/16 [History] Levothyroxine Sodium 25 Mcg [Synthroid 25 Mcg] 25 mcg PO DAILY 03/29/16 [ History] Trazodone HCl 300 mg PO HS 03/29/16 [History] Simvastatin 20 mg PO DAILY 06/15/16 [History] Suvorexant [Belsomra] 20 mg PO HS 10/06/16 [History] Benztropine Mesylate [Cogentin] 0.5 mg PO BID 04/16/17 [History] Carvedilol 12.5 mg [Coreg 12.5 mg] 6.25 mg PO BIDAC 04/16/17 [History] Cholestyramine Light 4 gm [QUESTRAN Light 4 GM Packet] 4 gm PO BID [History] Diphenoxylate HCl/Atropine [Lomotil] 2 tab PO QID 04/16/17 [History] Duloxetine HCl [Cymbalta] 20 mg PO HS 04/16/17 [History] Furosemide 40 mg [Lasix 40 MG] 40 mg PO DAILY 04/16/17 [History] Hydroxyzine HCl 25 mg [Atarax 25 mg] 50 mg PO TID PRN PRN 04/16/17 [ History] Lurasidone HCl [Latuda] 120 mg PO EVENING MEAL 04/16/17 [History] Metoprolol Tartrate 25 mg [Lopressor 25MG Tab] 25 mg PO BID 04/16/17 [ History] Paroxetine HCl [Paxil] 20 mg PO DAILY 04/16/17 [History] Hx Tetanus, Diphtheria Vaccination/Date Given: Yes Hx Influenza Vaccination/Date Given: Yes Hx Pneumococcal Vaccination/Date Given: Yes Immunizations Up to Date: Yes - Review of Systems Constitutional: No Fever, No Chills Eyes: No Symptoms Ears, Nose, & Throat: No Symptoms Respiratory: No Cough, No Dyspnea Cardiac: No Chest Pain, No Edema, No Syncope Abdominal/Gastrointestinal: No Abdominal Pain, No Nausea, No Vomiting, No Diarrhea Genitourinary Symptoms: No Dysuria Musculoskeletal: Other (right arm and elbow pain) Skin: No Rash Neurological: No Dizziness, No Focal Weakness, No Sensory Changes Psychological: No Symptoms Endocrine: No Symptoms All Other Systems: Reviewed and Negative - Past Medical History Pertinent Past Medical History: Yes Neurological History: No Pertinent History ENT History: No Pertinent History Cardiac History: Congestive Heart Failure, Myocardial Infarction ([place]) Respiratory History: COPD Endocrine Medical History: Hypothyroidism Musculoskeletal History: Arthritis, Rheumatoid Arthritis GI Medical History: Colitis, GERD, Other History: No Pertinent History Psycho-Social History: Anxiety, Attention Deficit Disorder, Bipolar, Depression , Panic Disorder Female Reproductive Disorders: No Pertinent History Other Medical History: lupus, - Past Surgical History Past Surgical History: No Neuro Surgical History: No Pertinent History Cardiac: No Pertinent History Respiratory: No Pertinent History Gastrointestinal: No Pertinent History Genitourinary: No Pertinent History Musculoskeletal: No Pertinent History Female Surgical History: No Pertinent History - Social History Smoking Status: Former smoker How long have you smoked: 35 years Exposure to second hand smoke: No Drug Use: none Patient Lives Alone: No - Nursing Vital Signs Nursing Vital Signs: Initial Vital Signs Temperature 98 F 04/07/19 08:37 Pulse Rate 91 H 04/07/19 08:37 Respiratory Rate 18 04/07/19 08:37 Blood Pressure 166/76 04/07/19 08:37 O2 Sat by Pulse Oximetry 98 04/07/19 08:37 Pain Scale Pain Intensity 8 - Physical Exam General Appearance: mild distress, alert Eyes, Ears, Nose, Throat Exam: moist mucous membranes Neck Exam: non-tender, supple Cardiovascular/Respiratory Exam: chest non-tender, normal breath sounds, regular rate/rhythm, no respiratory distress Abdominal Exam: non-tender, No guarding Back Exam: normal inspection, No vertebral tenderness Shoulder Exam: non-tender, no evidence of injury, normal ROM, No normal inspection (pain right distal arm with movement) Elbow/Forearm Exam: No normal inspection (decreased range of motion right elbow secondary to pain. Pain with palpation right elbow) Wrist Exam: normal inspection, non-tender, no evidence of injury, normal ROM Hand Exam: normal inspection, non-tender, no evidence of injury, normal ROM Neuro/Tendon Exam: normal sensation, normal motor functions Mental Status Exam: alert, oriented x 3, cooperative Skin Exam: normal color, warm, dry SpO2 Interpretation: normal (98%) SpO2: 98 - Course Nursing assessment & vital signs reviewed: Yes - Radiology Exams Right Humerus X-ray Interpretation: Discussed w/ radiologist (no acute fracture of the right humerus is seen) Right Elbow X-ray Interpretation: Discussed w/ radiologist (x-ray right elbow: Impression 1. Subtle, essentially nondisplaced fracture at the mid articular surface of the right radial head best seen on a PMH 2. Associated posterior fat pad seen on the lateral radiograph indicating a right elbow joint effusion/hemarthrosis.) Ordered Tests: Active Orders 24 hr Category Date Time Status Sling Application STAT Care 04/07/19 09:44 Active Splint STAT Care 04/07/19 09:44 Active ELBOW (MINIMUM 3 VIEWS) Stat Exams 04/07/19 08:59 Ordered HUMERUS Stat Exams 04/07/19 08:59 Ordered - Progress Progress: improved Progress Note: 04/07/19 09:41 59-year-old white female arrives with complaint of pain in her right elbow and pain in her right distal humerus after falling yesterday. Patient complains of pain with movement of her right elbow. She has no pain in her shoulder has pain with movement of her right elbow her distal right humerus. Patient does not want anything for pain at this time. 04/07/19 09:49 X-ray of the right humerus/elbow. Humerus no fractures. X-ray right elbow nondisplaced fracture right radial head with associated posterior fat pad indicating right elbow joint effusion/hemarthrosis. Long-arm OCL will be placed by nurse as well as a sling. Patient will be referred to Dr. Mclean or [facility] orthopedics - Departure Departure Disposition: Home Clinical Impression: Accidental fall Qualifiers: Encounter type: initial encounter Qualified Code(s): W19.XXXA - Unspecified fall, initial encounter Right radial head fracture Qualifiers: Encounter type: initial encounter Fracture type: closed Fracture alignment: nondisplaced Qualified Code(s): S52.124A - Nondisplaced fracture of head of right radius, initial encounter for closed fracture Condition: Fair Critical Care Time: No Referrals: KORY MCLEAN MD [Primary Care Provider] - Instructions: Elbow Fracture Additional Instructions: Return home. Ice to right elbow 24-48 hours. Tylenol every 4 hours as needed for pain. Followup with Dr. Mclean (call for appointment) or [facility] orthopedics bone and joint clinic tomorrow morning 8 AM Return for acute distress severe symptoms or for any problems.
[2019-04-07 10:31] VITALS: BP 132/86; PULSE 86
--- NOTE | 2019-04-10 16:32 | XRAY ---
Exam: 3 view right elbow series from 04/07/2019. Comparison: None. Indication: 59-year-old female fell and complains of right elbow pain. Findings: AP, oblique, and lateral radiographs of the right elbow were obtained. There appears to be a posterior fat pad on the lateral radiograph suggesting a mild right elbow joint effusion or hemarthrosis. In addition, on the AP image, there is a subtle cortical step-off deformity of the mid articular surface of the right radial head which I believe represents a subtle acute fracture injury. No other fracture is seen about the right elbow. The right elbow joint space appears unremarkable. No other focal bone lesion is seen. Impression: 1. There is a subtle, essentially nondisplaced fracture at the mid articular surface of the right radial head, best seen on the AP image. 2. An associated posterior fat pad is seen on the lateral radiograph indicating a right elbow joint effusion/hemarthrosis.
--- NOTE | 2019-04-10 16:33 | XRAY ---
Exam: Two-view right humerus series from 04/07/2019. Comparison: None. Indication: 59-year-old female fell yesterday, complains of pain. Findings: AP internal rotation and AP external rotation radiographs of the right humerus were obtained. I see no acute fracture or other significant focal bone lesion within the right humerus. There is again a suggestion of a posterior fat pad adjacent to the distal right humerus on the AP external rotation view. See right elbow report. Impression: 1. No acute fracture of the right humerus is seen. See above.
== END 2019-04-07 10:36 | disposition home or self-care (01) ==
LOC: ED 08:37
DX: S52.124A Nondisplaced fracture of head of right radius, initial encounter for closed fracture (principal); M79.601 Pain in right arm; M25.521 Pain in right elbow; W19.XXXA Unspecified fall, initial encounter; W18.09XA Striking against other object with subsequent fall, initial encounter; Y93.01 Activity, walking, marching and hiking; Y92.481 Parking lot as the place of occurrence of the external cause
CPT/HCPCS: 29105; 73060; 73080; 99284

== ENCOUNTER 2019-06-28 16:59 | Emergency (ER) | payer MEDICARE ==
[2019-06-28 17:23] VITALS: BP 149/102; PULSE 129; O2SAT 94
[2019-06-28] MEDS ORDERED: Haldol 5 MG IM ONE (17:25)
--- NOTE | 2019-06-28 17:25 | ERPHSYRPT ---
- History of Present Illness Time Seen by Provider: 06/28/19 17:23 Source: patient, family Exam Limitations: no limitations Patient Subjective Stated Complaint: pt reports that she is unable to sleep, states she saw Dr Mclean this week and he prescribed Remeron which is not working , pt states today she became lightheaded and belives her lack of sleep is taking a toll on her physically and mentally. pt reports this started 06/09/19 due to stress. pt reports history of insomnia for which she has been prescribed many medications. pt denies pain, states that she is not depressed, does not want any blood work or testing, she would just like something to help her sleep. Triage Nursing Assessment: pt is aox3, pt appears anxious, pupils perrl, afebrile, resps easy and non labored, radial pulses strong and equal, cap refill < 3 seconds, pt skin pink warm dry. Physician History: pt reports that she is unable to sleep, states she saw Dr Mclean this week and he prescribed Remeron which is not working, pt states today she became lightheaded and belives her lack of sleep is taking a toll on her physically and mentally. pt reports this started 06/09/19 due to stress. pt reports history of insomnia for which she has been prescribed many medications. pt denies pain, states that she is not depressed, does not want any blood work or testing, she would just like something to help her sleep. very anxious Timing/Duration: day(s) Allergies/Adverse Reactions: iodine Allergy (Verified 04/16/17 10:35) shellfish derived Allergy (Verified 04/16/17 10:35) walnut Allergy (Verified 04/16/17 10:35) oxycodone HCl [From Percocet] Adverse Reaction (Mild, Verified 04/16/17 10:35) UPSET STOMACH Home Medications: Carbamazepine 200 mg [Tegretol 200 MG] 200 mg PO BID 03/29/16 [History] Levothyroxine Sodium 25 Mcg [Synthroid 25 Mcg] 25 mcg PO DAILY 03/29/16 [ History] Trazodone HCl 300 mg PO HS 03/29/16 [History] Simvastatin 20 mg PO DAILY 06/15/16 [History] Suvorexant [Belsomra] 20 mg PO HS 07/06/16 [History] Benztropine Mesylate [Cogentin] 0.5 mg PO BID 04/16/17 [History] Carvedilol 12.5 mg [Coreg 12.5 mg] 6.25 mg PO BIDAC 04/16/17 [History] Cholestyramine Light 4 gm [QUESTRAN Light 4 GM Packet] 4 gm PO BID [History] Diphenoxylate HCl/Atropine [Lomotil] 2 tab PO QID 04/16/17 [History] Duloxetine HCl [Cymbalta] 20 mg PO HS 04/16/17 [History] Furosemide 40 mg [Lasix 40 MG] 40 mg PO DAILY 04/16/17 [History] Hydroxyzine HCl 25 mg [Atarax 25 mg] 50 mg PO TID PRN PRN 04/16/17 [ History] Lurasidone HCl [Latuda] 120 mg PO EVENING MEAL 04/16/17 [History] Metoprolol Tartrate 25 mg [Lopressor 25MG Tab] 25 mg PO BID 04/16/17 [ History] Paroxetine HCl [Paxil] 20 mg PO DAILY 04/16/17 [History] Hx Tetanus, Diphtheria Vaccination/Date Given: Yes Hx Influenza Vaccination/Date Given: Yes Hx Pneumococcal Vaccination/Date Given: No Immunizations Up to Date: Yes - Review of Systems Constitutional: No Fever, No Chills Eyes: No Symptoms Ears, Nose, & Throat: No Symptoms Respiratory: No Cough, No Dyspnea Cardiac: No Chest Pain, No Edema, No Syncope Abdominal/Gastrointestinal: No Abdominal Pain, No Nausea, No Vomiting, No Diarrhea Genitourinary Symptoms: No Dysuria Musculoskeletal: No Back Pain, No Neck Pain Skin: No Rash Neurological: No Dizziness, No Focal Weakness, No Sensory Changes Psychological: No Symptoms Endocrine: No Symptoms All Other Systems: Reviewed and Negative - Past Medical History Pertinent Past Medical History: Yes Neurological History: No Pertinent History ENT History: No Pertinent History Cardiac History: Congestive Heart Failure, High Cholesterol, Hypertension, Myocardial Infarction ([place]) Respiratory History: COPD Endocrine Medical History: Hypothyroidism Musculoskeletal History: Arthritis, Fibromyalgia, Rheumatoid Arthritis GI Medical History: Colitis, GERD, Irritable Bowel, Other History: No Pertinent History Psycho-Social History: Anxiety, Attention Deficit Disorder, Bipolar, Depression , Panic Disorder Female Reproductive Disorders: No Pertinent History Other Medical History: RLS - Past Surgical History Past Surgical History: No Neuro Surgical History: No Pertinent History Cardiac: No Pertinent History Respiratory: No Pertinent History Gastrointestinal: No Pertinent History Genitourinary: No Pertinent History Musculoskeletal: No Pertinent History Female Surgical History: No Pertinent History - Social History Smoking Status: Never smoker How long have you smoked: 35 years Exposure to second hand smoke: No Drug Use: none Patient Lives Alone: No - Female History Hx Now: No - Nursing Vital Signs Nursing Vital Signs: Initial Vital Signs Pulse Rate 129 H 06/28/19 17:11 Respiratory Rate 20 06/28/19 17:11 Blood Pressure 149/102 06/28/19 17:11 O2 Sat by Pulse Oximetry 94 L 06/28/19 17:11 Pain Scale Pain Intensity 0 - Physical Exam General Appearance: no apparent distress, alert Eye Exam: PERRL/EOMI, eyes nml inspection Ears, Nose, Throat Exam: normal ENT inspection, TMs normal, pharynx normal, moist mucous membranes Neck Exam: normal inspection, non-tender, supple, full range of motion Respiratory Exam: normal breath sounds, lungs clear, No respiratory distress Cardiovascular Exam: regular rate/rhythm, normal heart sounds, normal peripheral pulses Gastrointestinal/Abdomen Exam: soft, normal bowel sounds, No tenderness, No mass Back Exam: normal inspection, normal range of motion, No CVA tenderness, No vertebral tenderness Extremity Exam: normal inspection, normal range of motion, pelvis stable Neurologic Exam: alert, oriented x 3, cooperative, normal mood/affect, nml cerebellar function, nml station & gait, sensation nml, No motor deficits Skin Exam: normal color, warm, dry, No rash Lymphatic Exam: No adenopathy SpO2: 94 - Course Nursing assessment & vital signs reviewed: Yes - Progress Progress: unchanged Counseled pt/family regarding: diagnosis, need for follow-up - Departure Departure Disposition: Home Clinical Impression: Insomnia due to anxiety and fear Condition: Stable Critical Care Time: No Referrals: KORY MCLEAN MD [Primary Care Provider] - Instructions: Anxiety, Adult (DC), Insomnia (DC), Tips for Getting Better Sleep Additional Instructions: Discharge/Care Plan ALMA JAIMES was seen on 06/28/19 in the Emergency Room. The patient was counseled regarding Diagnosis,Lab results, Imaging studies, need for follow up and when to return to the Emergency Room. Prescriptions given: Discharge Note I have spoken with the patient and/or caregivers. I have explained the patient' s condition, diagnosis and treatment plan based on the information available to me at this time. I have answered the patient's and/or caregiver's questions and addressed any concerns. The patient and/or caregivers have as good understanding of the patient's diagnosis, condition and treatment plan as can be expected at this point. The vital signs have been stable. The patient's condition is stable and appropriate for discharge from the emergency department. The patient will pursue further outpatient evaluation with the primary care physician or other designated or consulting physician as outlined in the discharge instructions. The patient and/or caregivers are agreeable to this plan of care and follow-up instructions have been explained in detail. The patient and/or caregivers have received these instruction. The patient/and or caregivers are aware that any significant change in condition or worsening of symptoms should prompt an immediate return to this or the closest emergency department or call 911.
[2019-06-28] MEDS ORDERED: Haldol 5 MG ONE (17:35)
== END 2019-06-28 17:57 | disposition home or self-care (01) ==
LOC: ED 16:59
DX: G47.09 Other insomnia (principal); F40.9 Phobic anxiety disorder, unspecified
CPT/HCPCS: 96372; 99283; J1630

== ENCOUNTER 2022-03-08 14:36 | Day surgery (SDC) | payer MEDICARE ==
[2022-03-08] MEDS ORDERED: Depo-Medrol 40 MG/ML IM ONE (14:37)
[2022-03-08] MEDS ORDERED: XYLOCAINE-MPF 1% 5ML SDV IJ ONE (14:37)
[2022-03-08] MEDS ORDERED: Marcaine Mpf 0.5% Vial 30 Ml IJ ONE (14:37)
[2022-03-08] MEDS ORDERED: BENADRYL 50 MG/ML ONE (15:35)
--- NOTE | 2022-03-08 17:33 | XRAY ---
Indication: Bilateral hip and greater trochanter bursa injections. Intraoperative fluoroscopy provided for 40 seconds. 4 digital spot image submitted for interpretation demonstrates needle tips projecting lateral to the left/right femur necks and lateral to the left/right greater trochanters. Small amount of contrast injected for all needle tip placement. Correlate with intraoperative findings/report.
--- NOTE | 2022-03-08 17:36 | XRAY ---
40 seconds of fluoroscopy was used in surgery for bilateral hip greater trochanteric bursa and intra-articular injections.
== END 2022-03-08 16:58 | disposition home or self-care (01) ==
LOC: SDC-PAIN 14:36
PROVIDERS: ATTEND Psychiatry & Neurology Pain Medicine
DX: M16.0 Bilateral primary osteoarthritis of hip (principal); Z79.899 Other long term (current) drug therapy
CPT/HCPCS: 20610; 73522; 77002; J1030; J1200; Q9966

== ENCOUNTER 2022-07-12 10:30 | Day surgery (SDC) | payer MEDICARE ==
[2022-07-12] MEDS ORDERED: LIDOCAINE HCL 1% 50 MG/5 ML VL PF IJ ONE (10:31)
[2022-07-12] MEDS ORDERED: DIPRIVAN 200 MG/20 ML IV ONE (12:31)
--- NOTE | 2022-07-12 13:10 | XRAY ---
Indication: Bilateral L4-S1 MBB. Intraoperative fluoroscopy provided for 21 seconds. Single digital spot image submitted for interpretation demonstrates posterior needle tips projecting over the expected left and right L4-S1 nerve roots. Correlate with intraoperative findings/report.
[2022-07-12] MEDS ORDERED: Lactated Ringers 1,000 ML IV ONE (14:33)
--- NOTE | 2022-07-12 14:39 | XRAY ---
9 seconds of fluoroscopy was used in surgery for a bilateral L4-S1 MBB.
== END 2022-07-12 12:51 | disposition home or self-care (01) ==
LOC: SDC-PAIN 10:30
PROVIDERS: ATTEND Psychiatry & Neurology Pain Medicine
DX: M47.816 Spondylosis without myelopathy or radiculopathy, lumbar region (principal); Z79.899 Other long term (current) drug therapy
CPT/HCPCS: 64493; 64494; 72020; 77002; J2001; J2704

== ENCOUNTER 2023-02-07 07:47 | Day surgery (SDC) | payer MEDICARE ==
[2023-02-07] MEDS ORDERED: LIDOCAINE HCL 1% 50 MG/5 ML VL PF IJ ONE (07:48)
[2023-02-07] MEDS ORDERED: Depo-Medrol 40 MG/ML IM ONE (07:48)
[2023-02-07] MEDS ORDERED: BUPIVACAINE 0.5% VIAL IJ ONE (07:48)
--- NOTE | 2023-02-07 12:07 | XRAY ---
Indication: Bilateral hip and bilateral greater trochanter bursa injection. Intraoperative fluoroscopy provided for 1 minute. 5 digital spot image submitted for interpretation demonstrates needle tips lateral to the left/right femur necks and left/right greater trochanters. Small amount of contrast injected for all needle tip placement. Correlate with intraoperative findings/report.
--- NOTE | 2023-02-07 12:42 | XRAY ---
One minute of fluoroscopy was used in surgery for a bilateral intra-articular hip and bilateral greater trochanteric bursa injection.
== END 2023-02-07 09:50 | disposition home or self-care (01) ==
LOC: SDC-PAIN 07:47
PROVIDERS: ATTEND Psychiatry & Neurology Pain Medicine
DX: M70.62 Trochanteric bursitis, left hip (principal); M70.61 Trochanteric bursitis, right hip; M16.0 Bilateral primary osteoarthritis of hip
CPT/HCPCS: 20610; 73522; 77002; J1030; J2001; Q9966

== ENCOUNTER 2023-05-09 12:34 | Day surgery (SDC) | payer MEDICARE ==
[2023-05-09] MEDS ORDERED: BUPIVACAINE 0.5% VIAL IJ ONE (12:35)
[2023-05-09] MEDS ORDERED: DIPRIVAN 200 MG/20 ML IV ONE (14:52)
[2023-05-09] MEDS ORDERED: Lactated Ringers 1,000 ML IV ONE (16:00)
--- NOTE | 2023-05-09 16:32 | XRAY ---
7 seconds of fluoroscopy was used in surgery for a bilateral L4-S1 MBB.
--- NOTE | 2023-05-09 16:35 | XRAY ---
Indication: Bilateral L4-S1 MBB. Intraoperative fluoroscopy provided for 7 seconds. Single digital spot image submitted for interpretation demonstrates posterior needle tips projecting over the expected left and right L4-S1 nerve roots. Correlate with intraoperative findings/report.
== END 2023-05-09 15:22 | disposition home or self-care (01) ==
LOC: SDC-PAIN 12:34
PROVIDERS: ATTEND Psychiatry & Neurology Pain Medicine
DX: M47.816 Spondylosis without myelopathy or radiculopathy, lumbar region (principal); Z79.899 Other long term (current) drug therapy
CPT/HCPCS: 64493; 64494; 72020; 77002; J2704

== ENCOUNTER 2023-06-15 09:00 | Emergency (ER) | payer MEDICARE ==
[2023-06-15 09:17] VITALS: BP 155/62; PULSE 98; TEMP 97.7; O2SAT 96
--- NOTE | 2023-06-15 09:27 | ERPHSYRPT ---
- History of Present Illness Time Seen by Provider: 06/15/23 09:23 Source: patient Exam Limitations: no limitations Patient Subjective Stated Complaint: Pt states that she had a heart cath on Sunday and they had went in on her right AC and it has developed a red swollen lump with some heat to it Triage Nursing Assessment: Pt brought to the ER by her , hypertensive, rates pain as 2-3/10 when she touches her right arm, pt has not placed any ice or taken any tylenol or ibuprofen for the pain, pt did go to [facility] this morning and they told her to come to the ER, right AC is red and swollen with a little bit of heat, pulses normal, skin n/w/d, doesn't appear to be in any distress Physician History: Patient is a 63-year-old female presents to our ED as a referral from [facility] for evaluation of a right AC swelling and tenderness. Patient had a heart cath done Sunday 3 days ago. Since then patient observed the area to be swollen and tender. Per instructions patient was advised to follow-up for medical evaluation if symptoms develop. Patient rates her pain 2 out of 10. Patient sitting up in bed she is comfortable. Patient symptoms are local. No associated chest pain or shortness of breath. No nausea vomiting or diaphoresis. at bedside. They voiced no other complaints or concerns at this time. Portions of this note were created with voice recognition technology. There may be grammatical, spelling, punctuation or sound alike errors Timing/Duration: today Severity: moderate Modifying Factors: Improves With: other Associated Symptoms: denies symptoms (Some pain with palpation to the involved area) Allergies/Adverse Reactions: iodine Allergy (Verified 06/15/23 09:17) shellfish derived Allergy (Verified 06/15/23 09:17) walnut Allergy (Verified 06/15/23 09:17) Home Medications: RX: Carbamazepine 200 mg [Tegretol 200 MG] 200 mg PO BID 03/29/16 [History] RX: Levothyroxine Sodium 25 Mcg [Synthroid 25 Mcg] 25 mcg PO DAILY 03/29/16 [History] RX: Trazodone HCl 150 mg PO HS 03/29/16 [History] RX: Simvastatin 20 mg PO DAILY 06/15/16 [History] RX: Benztropine Mesylate [Cogentin] 0.5 mg PO BID 04/16/17 [History] RX: Carvedilol 12.5 mg [Coreg 12.5 mg] 6.25 mg PO BIDAC 04/16/17 [History] RX: Diphenoxylate HCl/Atropine [Lomotil] 2 tab PO QID 04/16/17 [History] RX: Duloxetine HCl [Cymbalta] 20 mg PO HS 04/16/17 [History] RX: Lurasidone HCl [Latuda] 40 mg PO EVENING MEAL 04/16/17 [History] RX: Metoprolol Tartrate 25 mg [Lopressor 25MG Tab] 25 mg PO BID 04/16/17 [History] RX: PARoxetine HCL [Paxil] 20 mg PO DAILY 04/16/17 [History] Gabapentin [Neurontin ] 300 mg PO TID 06/15/23 [History] Lorazepam 1 mg [Ativan 1 MG] 1 mg PO DAILY PRN 06/15/23 [History] Mirtazapine 30 mg SL HS 06/15/23 [History] RX: Buspirone HCl 30 mg PO BID 06/15/23 [History] RX: Omeprazole 20 mg PO DAILY 06/15/23 [History] RX: Sacubitril/Valsartan [Entresto 49 mg-51 mg Tablet] 1 tab PO DAILY 06/15/23 [History] Tizanidine HCl 4 mg [Zanaflex 4 MG] 4 mg PO UD PRN 06/15/23 [History] Torsemide 20 mg [Demadex 20 mg] 10 mg PO DAILY 06/15/23 [History] Hx Tetanus, Diphtheria Vaccination/Date Given: No Hx Influenza Vaccination/Date Given: Yes Hx Pneumococcal Vaccination/Date Given: No Travel Risk - International Travel Have you traveled outside of the country in past 3 weeks: No - Coronavirus Screening Are you exhibiting any of the following symptoms?: No Close contact with a COVID-19 positive Pt in past 14-21 Days: No - Vaccine Status Have you recieved a Covid-19 vaccination: Yes Internal Control Consultant: [employer] - Review of Systems Constitutional: No Symptoms, No Fever, No Chills Eyes: No Symptoms Ears, Nose, & Throat: No Symptoms Respiratory: No Symptoms, No Cough, No Dyspnea Cardiac: No Symptoms, No Chest Pain, No Edema, No Syncope Abdominal/Gastrointestinal: No Symptoms, No Abdominal Pain, No Nausea, No Vomiting, No Diarrhea Genitourinary Symptoms: No Symptoms, No Dysuria Musculoskeletal: No Symptoms, No Back Pain, No Neck Pain Skin: No Symptoms, No Rash Neurological: No Symptoms, No Dizziness, No Focal Weakness, No Sensory Changes Psychological: No Symptoms Endocrine: No Symptoms Hematologic/Lymphatic: No Symptoms Immunological/Allergic: No Symptoms All Other Systems: Reviewed and Negative - Past Medical History Pertinent Past Medical History: Yes Neurological History: No Pertinent History ENT History: No Pertinent History Cardiac History: Congestive Heart Failure, High Cholesterol, Hypertension, Myocardial Infarction ([place]) Respiratory History: COPD Endocrine Medical History: Hypothyroidism Musculoskeletal History: Arthritis, Fibromyalgia, Rheumatoid Arthritis GI Medical History: Colitis, GERD, Irritable Bowel, Other History: No Pertinent History Psycho-Social History: Anxiety, Attention Deficit Disorder, Bipolar, Depression, Panic Disorder Female Reproductive Disorders: No Pertinent History Other Medical History: RLS - Past Surgical History Past Surgical History: No Neuro Surgical History: No Pertinent History Cardiac: No Pertinent History Respiratory: No Pertinent History Gastrointestinal: No Pertinent History Genitourinary: No Pertinent History Musculoskeletal: No Pertinent History Female Surgical History: No Pertinent History - Social History Smoking Status: Never smoker How long have you smoked: 35 years Exposure to second hand smoke: No Drug Use: none Patient Lives Alone: No - Nursing Vital Signs Nursing Vital Signs: Initial Vital Signs Temperature 97.7 F 06/15/23 09:09 Pulse Rate 98 H 06/15/23 09:09 Blood Pressure 155/62 06/15/23 09:09 O2 Sat by Pulse Oximetry 96 06/15/23 09:09 Pain Scale Pain Intensity 2 - Physical Exam General Appearance: no apparent distress, alert Eye Exam: PERRL/EOMI, eyes nml inspection Ears, Nose, Throat Exam: normal ENT inspection, TMs normal, pharynx normal, moist mucous membranes Neck Exam: normal inspection, non-tender, supple, full range of motion Respiratory Exam: normal breath sounds, lungs clear, airway intact, No respiratory distress Cardiovascular Exam: regular rate/rhythm, normal heart sounds, normal peripheral pulses Gastrointestinal/Abdomen Exam: soft, normal bowel sounds, No tenderness, No mass Back Exam: normal inspection, normal range of motion, No CVA tenderness, No vertebral tenderness Extremity Exam: normal inspection, normal range of motion, pelvis stable Neurologic Exam: alert, oriented x 3, cooperative, normal mood/affect, nml cerebellar function, nml station & gait, sensation nml, No motor deficits Skin Exam: normal color, warm, dry, No rash Lymphatic Exam: No adenopathy SpO2 Interpretation: normal SpO2: 96 O2 Delivery: Room Air - Course Nursing assessment & vital signs reviewed: Yes - Radiology Ultrasound Exam Venous Upper Extremity Ultrasound: tele radiology report (Thrombophlebitis no DVT) Ordered Tests: Active Orders 24 hr Category Date Time Status VENOUS UNILAT/LIMITED EXTREMIT [US] Stat Exams 06/15/23 09:21 Completed - Progress Progress: improved Progress Note: Patient is a 63-year-old female presents to our ED with pain and swelling at the site of a heart cath. Ultrasound negative for DVT however patient has a thrombophlebitis. Patient currently takes an aspirin daily. Patient advised to continue taking the aspirin. She is to apply a warm compress to the involved area. Patient understands the importance for follow-up to ensure that the thrombophlebitis is not propagating. She will call her primary care doctor today and schedule follow-up appointment. Oral analgesics as needed. at bedside. They voiced no other complaints or concerns at this time. Portions of this note were created with voice recognition technology. There may be grammatical, spelling, punctuation or sound alike errors Complexity of problems addressed is moderate acute complicated No critical care time Complex of data reviewed and analyzed is moderate. Test ordered. Test reviewed. Ultrasound report obtained and analyzed. Clinical correlation made between the findings and history and physical examination. Based on the findings and history and physical patient has a thrombophlebitis. Management established accordingly. We will discharge home. Risk of complication and or risk of morbidity/mortality of patient management is low. Patient will apply a warm compress at home 2-3 times daily and continue taking her aspirin. Vital stable. Time spent to discharge patient approximately 15 minutes. Patient and educated on the management of thrombophlebitis. No social determinants present to impede follow-up. Portions of this note were created with voice recognition technology. There may be grammatical, spelling, punctuation or sound alike errors 06/15/23 11:17 Counseled pt/family regarding: diagnosis, need for follow-up, rad results - Departure Departure Disposition: Home Clinical Impression: Thrombophlebitis Condition: Stable Critical Care Time: No Referrals: KORY MCLEAN MD [Primary Care Provider] - Follow up/PCP as directed Additional Instructions: Discharge/Care Plan ALMA JAIMES was seen on 06/15/23 in the Emergency Room. The patient was counseled regarding Diagnosis,Lab results, Imaging studies, need for follow up and when to return to the Emergency Room. Prescriptions given: Discharge Note I have spoken with the patient and/or caregivers. I have explained the patient's condition, diagnosis and treatment plan based on the information available to me at this time. I have answered the patient's and/or caregiver's questions and addressed any concerns. The patient and/or caregivers have as good understanding of the patient's diagnosis, condition and treatment plan as can be expected at this point. The vital signs have been stable. The patient's condition is stable and appropriate for discharge from the emergency department. The patient will pursue further outpatient evaluation with the primary care physician or other designated or consulting physician as outlined in the discharge instructions. The patient and/or caregivers are agreeable to this plan of care and follow-up instructions have been explained in detail. The patient and/or caregivers have received these instruction. The patient/and or caregivers are aware that any significant change in condition or worsening of symptoms should prompt an immediate return to this or the closest emergency department or call 911.
--- NOTE | 2023-06-15 10:22 | XRAY ---
Indication: Right arm pain, swelling, and erythema. Two-dimensional sonogram and color Doppler imaging of the major venous vessels of the right upper extremity performed. Comparison: None Visualized right internal jugular, subclavian, axillary, brachial, basilic, cephalic, radial, and ulnar veins are negative for thrombosis. Venous waveforms are normal with and without augmentation. Targeted ultrasound over region of pain/swelling demonstrates subcutaneous vein with occluding intraluminal echogenicities. Impression: Site of pain/swelling demonstrates a occluded subcutaneous vein. Given patient's presenting symptoms, rule out thrombophlebitis. Remaining right upper extremity negative for venous thrombosis.
== END 2023-06-15 11:31 | disposition home or self-care (01) ==
LOC: ED 09:00
DX: I80.8 Phlebitis and thrombophlebitis of other sites (principal); E78.5 Hyperlipidemia, unspecified; I11.0 Hypertensive heart disease with heart failure; I50.9 Heart failure, unspecified; Z79.899 Other long term (current) drug therapy
CPT/HCPCS: 93971; 99283

== ENCOUNTER 2023-07-11 11:05 | Day surgery (SDC) | payer MEDICARE ==
[2023-07-11] MEDS ORDERED: Depo-Medrol 40 MG/ML IM ONE (11:06)
[2023-07-11] MEDS ORDERED: BUPIVACAINE 0.5% VIAL IJ ONE (11:06)
[2023-07-11] MEDS ORDERED: LIDOCAINE HCL 1% 50 MG/5 ML VL PF IJ ONE (11:06)
[2023-07-11] MEDS ORDERED: DIPRIVAN 200 MG/20 ML IV ONE (14:29)
--- NOTE | 2023-07-11 16:59 | XRAY ---
Indication: Right L4-S1 RFA. Intraoperative fluoroscopy provided for 25 seconds. 4 digital spot images submitted for interpretation demonstrates posterior needle tips projecting over the expected right L4-S1 nerve roots. Correlate with intraoperative findings/report.
[2023-07-11] MEDS ORDERED: Lactated Ringers 1,000 ML IV ONE (17:03)
--- NOTE | 2023-07-11 17:04 | XRAY ---
25 seconds of fluoroscopy was used in surgery for a right L4-S1 RFA.
== END 2023-07-11 15:05 | disposition home or self-care (01) ==
LOC: SDC-PAIN 11:05
PROVIDERS: ATTEND Psychiatry & Neurology Pain Medicine
DX: M47.816 Spondylosis without myelopathy or radiculopathy, lumbar region (principal)
CPT/HCPCS: 64635; 64636; 72100; 77002; J1030; J2001; J2704

== ENCOUNTER 2023-07-18 10:55 | Day surgery (SDC) | payer MEDICARE ==
[2023-07-18] MEDS ORDERED: Depo-Medrol 40 MG/ML IM ONE (10:56)
[2023-07-18] MEDS ORDERED: BUPIVACAINE 0.5% VIAL IJ ONE (10:56)
[2023-07-18] MEDS ORDERED: LIDOCAINE HCL 1% 50 MG/5 ML VL PF IJ ONE (10:56)
[2023-07-18] MEDS ORDERED: DIPRIVAN 200 MG/20 ML IV ONE (13:07)
[2023-07-18] MEDS ORDERED: Lactated Ringers 1,000 ML IV ONE (15:04)
--- NOTE | 2023-07-18 17:03 | XRAY ---
Indication: Left L4-S1 RFA. Intraoperative fluoroscopy provided for 28 seconds. 5 digital spot image submitted for interpretation demonstrates posterior needle tips projecting over the expected left L4-S1 nerve roots. Correlate with intraoperative findings/report.
--- NOTE | 2023-07-18 17:21 | XRAY ---
28 seconds of fluoroscopy was used in surgery for a left L4-S1 RFA.
== END 2023-07-18 13:40 | disposition home or self-care (01) ==
LOC: SDC-PAIN 10:55
PROVIDERS: ATTEND Psychiatry & Neurology Pain Medicine
DX: M47.816 Spondylosis without myelopathy or radiculopathy, lumbar region (principal); Z79.899 Other long term (current) drug therapy
CPT/HCPCS: 64635; 64636; 72100; 77002; J1030; J2001; J2704

== ENCOUNTER 2023-12-14 18:54 | Emergency (ER) | payer MEDICARE ==
[2023-12-14 19:16] VITALS: TEMP 98.1
--- NOTE | 2023-12-14 19:26 | ERPHSYRPT ---
- History of Present Illness Time Seen by Provider: 12/14/23 19:26 Source: patient, family Exam Limitations: no limitations Patient Subjective Stated Complaint: Patient fell approx 30 minutes prior to coming into the ER. Patient states she fell in her bathroom and hit her head on the sink. She denies loss of conciousness. Also c/o neck, right hip, right knee, and lower back pain. Triage Nursing Assessment: Patient brought back to ER in a w/c. She is alert and oriented. She was able to transfer self from W/C to bed with standby assistance. Bearing weight to BLE without any difficulties. NO bruising or skin alterations noted at this time. Physician History: This is a 63-year-old white female patient of Dr. Mclean who has multiple medical problems including gastroesophageal reflux disease, CHF, COPD, hypothyroidism, hypertension, hyperlipidemia, panic disorder, bipolar disorder, irritable bowel syndrome and fibromyalgia and presents to the emergency department after falling approximately 30 minutes prior to arrival. She does not recall the circumstances but did states she did not lose consciousness. Patient complains of headache, neck pain, right hip pain, right lateral rib pain and right knee pain. Patient denies shortness of breath. She has no abdominal pain. She only has rib pain she does not have chest pain proper. Reason for Fall: fell from standing pos Injuries/Pain Location: head, neck, chest (Right lateral ribs), lower extremity (Right hip and right knee) Loss of Consciousness: no loss of consciousness Quality: aching Severity of Pain-Max: moderate Severity of Pain-Current: moderate Modifying Factors: Improves With: movement Associated Symptoms (Fall): extremity injury, headache, neck pain, No confusion, No chest pain Allergies/Adverse Reactions: iodine Allergy (Verified 12/14/23 19:05) shellfish derived Allergy (Verified 12/14/23 19:05) walnut Allergy (Verified 12/14/23 19:05) Home Medications: Carbamazepine 200 mg [Tegretol 200 MG] 200 mg PO BID 03/29/16 [History] Levothyroxine Sodium 25 Mcg [Synthroid 25 Mcg] 25 mcg PO DAILY 03/29/16 [History] Trazodone HCl 150 mg PO HS 03/29/16 [History] Simvastatin 20 mg PO DAILY 06/15/16 [History] Benztropine Mesylate [Cogentin] 0.5 mg PO BID 04/16/17 [History] Carvedilol 12.5 mg [Coreg 12.5 mg] 6.25 mg PO BIDAC 04/16/17 [History] Diphenoxylate HCl/Atropine [Lomotil] 2 tab PO QID 04/16/17 [History] Duloxetine HCl [Cymbalta] 20 mg PO HS 04/16/17 [History] Lurasidone HCl [Latuda] 40 mg PO EVENING MEAL 04/16/17 [History] Metoprolol Tartrate 25 mg [Lopressor 25MG Tab] 25 mg PO BID 04/16/17 [History] PARoxetine HCL [Paxil] 20 mg PO DAILY 04/16/17 [History] Buspirone HCl 30 mg PO BID 06/15/23 [History] Gabapentin [Neurontin ] 300 mg PO TID 06/15/23 [History] Lorazepam 1 mg [Ativan 1 MG] 1 mg PO DAILY PRN 06/15/23 [History] Mirtazapine 30 mg SL HS 06/15/23 [History] Omeprazole 20 mg PO DAILY 06/15/23 [History] Sacubitril/Valsartan [Entresto 49 mg-51 mg Tablet] 1 tab PO DAILY 06/15/23 [History] Tizanidine HCl 4 mg [Zanaflex 4 MG] 4 mg PO UD PRN 06/15/23 [History] Torsemide 20 mg [Demadex 20 mg] 10 mg PO DAILY 06/15/23 [History] Hx Tetanus, Diphtheria Vaccination/Date Given: Yes Hx Influenza Vaccination/Date Given: No Hx Pneumococcal Vaccination/Date Given: No Immunizations Up to Date: Yes Travel Risk - International Travel Have you traveled outside of the country in past 3 weeks: No - Coronavirus Screening Are you exhibiting any of the following symptoms?: No Close contact with a COVID-19 positive Pt in past 14-21 Days: No - Vaccine Status Have you recieved a Covid-19 vaccination: Yes Yarn Skeins Examiner: Knowable - Review of Systems Constitutional: No Symptoms Eyes: No Symptoms Ears, Nose, & Throat: No Symptoms Respiratory: No Symptoms Cardiac: No Symptoms Abdominal/Gastrointestinal: No Symptoms Genitourinary Symptoms: No Symptoms Musculoskeletal: Neck Pain, Injury (Right ribs, right hip and right knee) Skin: No Symptoms Neurological: Headache Psychological: No Symptoms Endocrine: No Symptoms Hematologic/Lymphatic: No Symptoms Immunological/Allergic: No Symptoms All Other Systems: Reviewed and Negative - Past Medical History Pertinent Past Medical History: Yes Neurological History: No Pertinent History ENT History: No Pertinent History Cardiac History: Congestive Heart Failure, High Cholesterol, Hypertension, Myocardial Infarction ([place]) Respiratory History: COPD Endocrine Medical History: Hypothyroidism Musculoskeletal History: Arthritis, Fibromyalgia, Rheumatoid Arthritis GI Medical History: Colitis, GERD, Irritable Bowel, Other History: No Pertinent History Psycho-Social History: Anxiety, Attention Deficit Disorder, Bipolar, Depression, Panic Disorder Female Reproductive Disorders: No Pertinent History Other Medical History: RLS - Past Surgical History Past Surgical History: No Neuro Surgical History: No Pertinent History Cardiac: No Pertinent History Respiratory: No Pertinent History Gastrointestinal: No Pertinent History Genitourinary: No Pertinent History Musculoskeletal: No Pertinent History Female Surgical History: No Pertinent History - Social History Smoking Status: Never smoker How long have you smoked: 35 years Exposure to second hand smoke: No Drug Use: none Patient Lives Alone: No - Nursing Vital Signs Nursing Vital Signs: Initial Vital Signs Temperature 98.1 F 12/14/23 19:06 Pulse Rate 108 H 12/14/23 19:06 Respiratory Rate 18 12/14/23 19:06 Blood Pressure 140/69 12/14/23 19:06 O2 Sat by Pulse Oximetry 96 12/14/23 19:06 Pain Scale Pain Intensity 8 - Kailyn Coma Score Best Eye Response (Kailyn): (4) open spontaneously Best Verbal Response (Kailyn): (5) oriented Best Motor Response (Kailyn): (6) obeys commands Kailyn Total: 15 - Physical Exam General Appearance: no apparent distress, alert, anxiety Head Injury: tenderness (Right parietal region. No laceration sites) Eye Exam: PERRL/EOMI, eyes nml inspection ENT Exam: airway nml, nml ext.inspection, No evidence of ENT injury, No dental injury Neck Exam: supple, trachea midline, full range of motion, normal alignment, normal inspection Respiratory/Chest Exam: normal breath sounds, rib tenderness (Right lateral ribs), No chest tenderness, No respiratory distress, No ecchymosis, No crepitus Cardiovascular Exam: normal heart sounds, normal peripheral pulses, tachycardia Gastrointestinal Exam: soft, normal bowel sounds, No tenderness Rectal Exam: not done Back Exam: normal inspection, normal range of motion, No CVA tenderness, No vertebral tenderness Extremity Exam: normal inspection, normal range of motion, pelvis stable, hip tenderness (Right hip), pain with movement (Right hip and right knee), tenderness (Anterior right knee), No evidence of injury Neurologic Exam: alert, oriented x 3, cooperative, telephone operator chief II-XII nml as tested, normal mood/affect, sensation nml Skin Exam: normal color, warm, dry SpO2 Interpretation: normal SpO2: 96 O2 Delivery: Room Air - Course Nursing assessment & vital signs reviewed: Yes Ordered Tests: Active Orders 24 hr Category Date Time Status Betting Clerk STAT Care 12/14/23 20:24 Active EKG-ER Only STAT Care 12/14/23 20:23 Active IV Insertion STAT Care 12/14/23 20:23 Active Pulse Oximetry (ED) STAT Care 12/14/23 20:23 Active CERVICAL SPINE WO CONTRAST [CT] Stat Exams 12/14/23 20:24 Taken HEAD WITHOUT CONTRAST [CT] Stat Exams 12/14/23 20:24 Taken HIP UNI (2V) INCL PEL IF DONE Stat Exams 12/14/23 20:26 Taken KNEE (3 VIEWS) Stat Exams 12/14/23 20:26 Taken RIBS UNILATERAL Stat Exams 12/14/23 20:25 Taken CBC W DIFF Stat Lab 12/14/23 20:23 Completed CMP Stat Lab 12/14/23 21:30 Completed CULTURE,URINE Stat Lab 12/14/23 22:28 Received MAGNESIUM Stat Lab 12/14/23 21:30 Completed NT PRO BNPII Stat Lab 12/14/23 21:30 Completed PROTIME WITH INR Stat Lab 12/14/23 21:30 Completed TROPONIN Q4H Lab 12/14/23 21:30 Completed TROPONIN Q4H Lab 12/15/23 00:30 Ordered TROPONIN Q4H Lab 12/15/23 04:30 Ordered UA W/RFX UR CULTURE Stat Lab 12/14/23 22:28 Completed Medication Summary Generic Name Dose Route Start Last Admin Trade Name Freq PRN Reason Stop Dose Admin Ceftriaxone Sodium 1 gm in 100 mls @ 200 mls/hr 12/14/23 22:55 Rocephin 1 Gm / 100 Ml Nacl IV 12/14/23 23:24 STAT ONE Discontinued Medications Generic Name Dose Route Start Last Admin Trade Name Delmar PRN Reason Stop Dose Admin Acetaminophen 650 mg 12/14/23 22:05 12/14/23 22:21 Acetaminophen 325 Mg Tablet PO 12/14/23 22:06 650 mg STAT ONE Administration Acetaminophen Confirm 12/14/23 22:18 Acetaminophen 325 Mg Tablet Administered 12/14/23 22:19 Dose 650 mg .ROUTE .STK-MED ONE Lab/Rad Data: Laboratory Result Diagrams 12/14/23 20:23 12/14/23 21:30 Laboratory Results 12/14/23 12/14/23 12/14/23 Range/Units 22:28 21:30 21:30 WBC (4.0-10.5) x10^3/uL RBC (4.1-5.4) x10^6/uL Hgb (12.0-16.0) g/dL Hct (35-47) % MCV (78-100) fL MCH (26-32) pg MCHC (32-36) g/dL RDW (11.5-14.0) % Plt Count (150-450) x10^3/uL MPV (7.5-11.0) fL Gran % (36.0-66.0) % Immature Gran % (Auto) (0.00-0.4) % Nucleat RBC Rel Count (0.00-0.1) % Eos # (Auto) (0-0.5) x10^3/uL Immature Gran # (Auto) (0.00-0.03) x10^3u/L Absolute Lymphs (auto) (1.0-4.6) x10^3/uL Absolute Monos (auto) (0.0-1.3) x10^3/uL Absolute Nucleated RBC (0.00-0.01) x10^3u/L Lymphocytes % (24.0-44.0) % Monocytes % (0.0-12.0) % Eosinophils % (0.00-5.0) % Basophils % (0.0-0.4) % Absolute Granulocytes (1.4-6.9) x10^3/uL Basophils # (0-0.4) x10^3/uL PT 10.4 (9.4-12.5) SECONDS INR 0.95 (0.8-3.0) Sodium 139 (135-145) mmol/L Potassium 3.5 (3.5-5.1) mmol/L Chloride 103 (98-107) mmol/L Carbon Dioxide 28 (22-30) mmol/L Anion Gap 11.6 (5-15) MEQ/L BUN 15 (7-17) mg/dL Creatinine 1.42 H (0.52-1.04) mg/dL Estimated GFR 41.6 ML/MIN Glucose 103 (74-106) mg/dL Calcium 9.3 (8.4-10.2) mg/dL Magnesium 1.9 (1.6-2.3) mg/dL Total Bilirubin 0.30 (0.2-1.3) mg/dL AST 20 (14-36) U/L ALT 17 (0-35) U/L Alkaline Phosphatase 106 (38-126) U/L Troponin I < 0.012 (0.000-0.034) ng/mL NT-Pro-B Natriuret Pep 59.4 (<300) pg/mL Serum Total Protein 6.7 (6.3-8.2) g/dL Albumin 4.0 (3.5-5.0) g/dL Urine Color Yellow (Yellow) Urine Appearance Clear (Clear) Urine pH 6.5 (4.6-8.0) Ur Specific [place] <=1.005 (1.005-1.030) Urine Protein Negative (Negative) Urine Glucose (UA) Negative (Negative) mg/dL Urine Ketones Negative (Negative) Urine Blood Negative (Negative) Urine Nitrite Positive A (Negative) Urine Bilirubin Negative (Negative) Urine Urobilinogen 0.2 (0.2) mg/dL Ur Leukocyte Esterase Small A (Negative) U Hyaline Cast (Auto) NONE SEEN (0-2) /LPF Urine Microscopic RBC 0-2 (0-5) /HPF Urine Microscopic WBC 6-10 A (0-5) /HPF Ur Epithelial Cells None Seen (None Seen) /HPF Urine Bacteria Many A (None Seen) /HPF Urine Culture Reflexed YES (NO) 12/14/23 Range/Units 20:23 WBC 7.3 (4.0-10.5) x10^3/uL RBC 4.83 (4.1-5.4) x10^6/uL Hgb 14.1 (12.0-16.0) g/dL Hct 44.3 (35-47) % MCV 91.7 (78-100) fL MCH 29.2 (26-32) pg MCHC 31.8 L (32-36) g/dL RDW 13.7 (11.5-14.0) % Plt Count 185 (150-450) x10^3/uL MPV 9.7 (7.5-11.0) fL Gran % 68.1 H (36.0-66.0) % Immature Gran % (Auto) 0.3 (0.00-0.4) % Nucleat RBC Rel Count 0.0 (0.00-0.1) % Eos # (Auto) 0.11 (0-0.5) x10^3/uL Immature Gran # (Auto) 0.02 (0.00-0.03) x10^3u/L Absolute Lymphs (auto) 1.66 (1.0-4.6) x10^3/uL Absolute Monos (auto) 0.47 (0.0-1.3) x10^3/uL Absolute Nucleated RBC 0.00 (0.00-0.01) x10^3u/L Lymphocytes % 22.8 L (24.0-44.0) % Monocytes % 6.5 (0.0-12.0) % Eosinophils % 1.5 (0.00-5.0) % Basophils % 0.8 (0.0-0.4) % Absolute Granulocytes 4.95 (1.4-6.9) x10^3/uL Basophils # 0.06 (0-0.4) x10^3/uL PT (9.4-12.5) SECONDS INR (0.8-3.0) Sodium (135-145) mmol/L Potassium (3.5-5.1) mmol/L Chloride (98-107) mmol/L Carbon Dioxide (22-30) mmol/L Anion Gap (5-15) MEQ/L BUN (7-17) mg/dL Creatinine (0.52-1.04) mg/dL Estimated GFR ML/MIN Glucose (74-106) mg/dL Calcium (8.4-10.2) mg/dL Magnesium (1.6-2.3) mg/dL Total Bilirubin (0.2-1.3) mg/dL AST (14-36) U/L ALT (0-35) U/L Alkaline Phosphatase (38-126) U/L Troponin I (0.000-0.034) ng/mL NT-Pro-B Natriuret Pep (<300) pg/mL Serum Total Protein (6.3-8.2) g/dL Albumin (3.5-5.0) g/dL Urine Color (Yellow) Urine Appearance (Clear) Urine pH (4.6-8.0) Ur Specific [place] (1.005-1.030) Urine Protein (Negative) Urine Glucose (UA) (Negative) mg/dL Urine Ketones (Negative) Urine Blood (Negative) Urine Nitrite (Negative) Urine Bilirubin (Negative) Urine Urobilinogen (0.2) mg/dL Ur Leukocyte Esterase (Negative) U Hyaline Cast (Auto) (0-2) /LPF Urine Microscopic RBC (0-5) /HPF Urine Microscopic WBC (0-5) /HPF Ur Epithelial Cells (None Seen) /HPF Urine Bacteria (None Seen) /HPF Urine Culture Reflexed (NO) - Progress Progress: improved, pain not gone completely, re-examined Progress Note: 12/14/23 21:28 This patient's medical issue is 1 of moderate complexity. The level of complexity and the workup performed is based on review of the patient's past medical history, review of the patient's medication list, review of patient drug allergy list, history present illness and physical findings on examination. The workup in this patient includes placement of intravenous line, CBC, CMP, urinalysis, troponin level, twelve-lead EKG, CT scan of the head, CT scan of cervical spine, x-ray of the right lateral ribs, x-ray of the right hip, x-ray of the right knee. The patient has significant CHF and COPD. She is on fluid restriction. We will hold off on any administration of intravenous fluids. Will await the results of the workup and decide if any interventions are necessary. 12/14/23 21:44 CT scan of the cervical spine was interpreted by the radiologist and I reviewed the impression. There is mild multilevel degenerative disc disease without evidence of fracture or subluxation. The CT scan of the head without contrast was interpreted by the radiologist and I reviewed the impression. It is a normal CT scan of the head. I interpreted the preliminary x-rays of the right rib. It is negative for acute fracture or pneumothorax. I interpreted the x-ray of the right hip. It is negative for acute fracture or dislocation. I interpreted the right knee x-ray. It is negative for acute fracture or dislocation. 12/14/23 22:05 I reviewed the results of the radiographic studies with the patient. She is aware they will be final reports and if they are different than my interpretation, she will get a phone call. Patient does not want any narcotic medication. She only desires Tylenol. 12/14/23 22:20 I interpreted the laboratory data results that have returned. Of those results that have returned, there is no evidence of any acute, emergent medical issue. We are awaiting the urinalysis. Counseled pt/family regarding: lab results, diagnosis, need for follow-up, rad results Medical Desision Making - Diagnostic Testing Diagnostic test were ordered, analyzed, and reviewed by me: Yes Radiological Interpretation: Interpreted by me, Reviewed by me, Teleradiologist Report - Risk of complications The pt has a mod risk of morbidity or mortality based on: Need for prescription drug management - Departure Departure Disposition: Home Clinical Impression: Fall, Episode of syncope, UTI (urinary tract infection) Condition: Stable Critical Care Time: No Referrals: KORY MCLEAN MD [Primary Care Provider] - Follow up/PCP as directed Additional Instructions: Continue your fluid restriction. Take your antibiotics and other medication as prescribed. Call your primary care provider on 12/16/2022 to make arrangements for follow-up appointment in the next 3 to 5 days. Prescriptions: Cefdinir 300 mg PO BID #14 cap
[2023-12-14 21:32] LABS: Absolute Neutrophil Ct (ANC) 4.95 x10^3/uL (1.4-6.9); BASOPHIL % 0.8 % (0.0-0.4); Basophil (Absolute #) 0.06 x10^3/uL (0-0.4); Eosinophil % 1.5 % (0.00-5.0); Eosinophil (Absolute #) 0.11 x10^3/uL (0-0.5); Hematocrit 44.3 % (35-47); Hemoglobin 14.1 g/dL (12.0-16.0); IMMATURE GRAN # 0.02 x10^3u/L (0.00-0.03); IMMATURE GRAN % 0.3 % (0.00-0.4); Lymphocyte (Absolute #) 1.66 x10^3/uL (1.0-4.6); Lymphocytes % 22.8 % (24.0-44.0); Mean Cell Volume 91.7 fL (78-100); Mean Corpuscular Hemoglobin 29.2 pg (26-32); Mean Corpuscular Hgb Concent. 31.8 g/dL (32-36); Mean Platelet Volume 9.7 fL (7.5-11.0); Monocyte (Absolute #) 0.47 x10^3/uL (0.0-1.3); Monocytes % 6.5 % (0.0-12.0); Neutrophil % 68.1 % (36.0-66.0); Platelet Count 185 x10^3/uL (150-450); Red Blood Count 4.83 x10^6/uL (4.1-5.4); Red Cell Distribution Width 13.7 % (11.5-14.0); White Blood Count 7.3 x10^3/uL (4.0-10.5)
[2023-12-14 21:47] LABS: INR 0.95 (0.8-3.0); PROTIME 10.4 SECONDS (9.4-12.5)
[2023-12-14 21:59] LABS: ALKALINE PHOSPHATASE 106 U/L (38-126); ANION GAP 11.6 MEQ/L (5-15); BLOOD UREA NITROGEN 15 mg/dL (7-17); CHLORIDE 103 mmol/L (98-107); Calcium 9.3 mg/dL (8.4-10.2); Carbon Dioxide 28 mmol/L (22-30); Creatinine 1 1.42 mg/dL (0.52-1.04); EST GLOMERULAR FILTRATION RATE 41.6 ML/MIN; Glucose 103 mg/dL (74-106); MAGNESIUM 1.9 mg/dL (1.6-2.3); NT PRO BNPII 59.4 pg/mL (<300); Potassium 3.5 mmol/L (3.5-5.1); SGOT/AST 20 U/L (14-36); SGPT/ALT 17 U/L (0-35); SODIUM 139 mmol/L (135-145); TROPONIN < 0.012 ng/mL (0.000-0.034); Total Protein 6.7 g/dL (6.3-8.2)
[2023-12-14] MEDS ORDERED: TYLENOL 325 MG ONE (22:18)
[2023-12-14] MEDS: TYLENOL 325 MG PO ONE (22:21)
[2023-12-14 22:50] LABS: Appearance Clear (Clear); Bacteria Many /HPF (None Seen); Bilirubin Negative (Negative); Blood Negative (Negative); Epithelial Cells None Seen /HPF (None Seen); Glucose, Urine Negative (Negative); Hyaline Casts NONE SEEN /LPF (0-2); Ketones Negative (Negative); Leukocyte Esterase Small (Negative); Nitrite Positive (Negative); Ph 6.5 (4.6-8.0); Protein,Urine Dip Negative (Negative); RBC 0-2 /HPF (0-5); Specific Gravity <=1.005 (1.005-1.030); Urobilinogen 0.2 mg/dL (0.2)
[2023-12-14 22:51] LABS: ADD URINE CULTURE? YES (NO)
[2023-12-14] MEDS: ROCEPHIN 1 GM / 100 ML NaCl 1 GM/100 ML IVPB IV ONE (23:12)
[2023-12-14] MEDS ORDERED: Rocephin 1000 MG INJ ONE (23:12)
[2023-12-14] MEDS ORDERED: XYLOCAINE 1% HCL 20 ML MDV ONE (23:13)
[2023-12-14] MEDS: Rocephin 1000 MG INJ IM ONE (23:14)
[2023-12-14 23:24] VITALS: BP 109/55; PULSE 75; RESP 17; O2SAT 98
--- NOTE | 2023-12-15 07:15 | XRAY ---
Indication: Dizziness. Head injury following fall. Multiple contiguous axial images obtained through the head without contrast. Comparison: July 06, 2016 Normal appearing brain parenchyma, ventricles, and bony calvarium for patient's age. Inferior left maxillary sinus demonstrates 1.5 cm polyp/retention cyst. Remaining visualized paranasal sinuses and master cells are clear. Impression: Normal CT head without contrast exam. Incidental left maxillary sinus polyp/retention cyst.
--- NOTE | 2023-12-15 07:18 | XRAY ---
Indication: Dizziness. Head injury following fall. Multiple contiguous axial images obtained through the cervical spine. Sagittal and coronal reformatted images obtained. Comparison: July 06, 2016 Axial images negative for acute fracture, suspicious bony lesions, or spinal canal stenosis. Again minimal C4-C6 degenerative endplate spurring and mild bilateral C3-C5 degenerative facet hypertrophy bilaterally. Sagittal and coronal reformatted images demonstrate normal alignment with minimal C4-C6 disc space narrowing. No acute compression fracture, subluxation, or jumped facet. Normal appearing craniocervical junction. Visualized noncontrasted soft tissues including lung apices are unremarkable. Patient is edentulous. Impression: 1. Continued negative acute fracture/subluxation. 2. Incidental mild multilevel degenerative changes.
--- NOTE | 2023-12-15 07:20 | XRAY ---
Indication: Pain following fall. Comparison: None AP pelvis and 2 view right hip demonstrates osteopenia and mild scattered vascular calcifications. No other bony, articular, or soft tissue abnormalities.
--- NOTE | 2023-12-15 07:20 | XRAY ---
Indication: Pain following fall. Comparison: None 2 view right ribs demonstrates osteopenia, mild scattered arteriosclerotic calcifications, and cardiac clip. No other bony, articular, or soft tissue abnormalities.
--- NOTE | 2023-12-15 07:22 | XRAY ---
Indication: Pain following fall. Comparison: None 3 view right knee demonstrate osteopenia and minimal scattered vascular calcifications. No other bony, articular, or soft tissue abnormalities.
== END 2023-12-14 23:36 | disposition home or self-care (01) ==
LOC: ED 18:54
DX: Z04.3 Encounter for examination and observation following other accident (principal); R55 Syncope and collapse; N39.0 Urinary tract infection, site not specified; R51.9 Headache, unspecified; M54.2 Cervicalgia; M25.551 Pain in right hip; R07.81 Pleurodynia; M25.561 Pain in right knee; I11.0 Hypertensive heart disease with heart failure; I50.9 Heart failure, unspecified; E78.5 Hyperlipidemia, unspecified; Z79.899 Other long term (current) drug therapy
CPT/HCPCS: 36415; 70450; 71100; 72125; 73502; 73562; 80053; 81001; 83735; 83880; 84484; 85025; 85610; 87077; 87086; 87186; 93005; 94760; 96372; 99284; J0696; A9270-GY